=== PATIENT | female | born 1960 | race Caucasian/White ===

== ENCOUNTER → 2016-04-17 | Outpatient (CLI) | payer MEDICARE, MEDICAID ==
--- NOTE | 2016-04-17 15:41 | REP ---
PA and lateral chest: Comparison is 08/06/2009. There is interstitial coarsening versus artifact from radiographic under penetration. There are no focal infiltrates. No pleural effusions. Cardiac size is normal. The megha, mediastinum, and bony thorax are unremarkable. Impression: Interstitial coarsening versus artifact from under penetration. Otherwise, negative PA and lateral chest. Signed by Brijesh Licea MD 04/17/2016 03:33 P
== END ==
LOC: M ADAMS 14:38
PROVIDERS: ATTEND Physician Assistant
DX: J40 Bronchitis, not specified as acute or chronic (principal)
CPT/HCPCS: 71020; G0463

== ENCOUNTER → 2016-05-17 | Outpatient (REF) | payer MEDICARE, MEDICAID | LOC: M SFHCADAM 09:52 | PROVIDERS: ATTEND Physician Assistant | DX: E10.65 Type 1 diabetes mellitus with hyperglycemia (principal) | CPT/HCPCS: 83036; G0463 ==

== ENCOUNTER → 2016-09-14 | Outpatient (CLI) | payer MEDICARE, MEDICAID ==
--- NOTE | 2016-10-03 00:45 | ECWPNPC ---
PATIENT NAME: BETHANY ROLDAN : 1960 GENDER: FEMALE VISIT DATE: 09/14/2016 DISCHARGE DATE: 09/14/16 1226 VISIT LOCKED DATE TIME: PHYSICIAN: FLAKITA SMITH RESOURCE: FLAKITA SMITH REASON FOR APPOINTMENT 1. BACK PAIN HISTORY OF PRESENT ILLNESS HISTORY OF PRESENT ILLNESS: PAIN THE PATIENT DESCRIBES THE PAIN... FALL RISK SCREENING: SCREENING :NO FALLS IN THE PAST YEAR TODAY'S VISIT: NOTES: FIRST RETURN TO THE CLINIC SINCE 10/31. HAD BEEN SCHEDULED FOR A PROCEDURE BUT NOT COMPLETED SCHEDULED. REPORTS SHE IS HAVING INCREASED BACK PAIN AND HAVING TINGLING IN LEFT LEG. THIS IS NEW AND IS GETTING WORSE. SENSORY CHANGE STARTS AT SCIATIC REGION AND RADIATES DOWN TO FEET.. ABOUT 2 WEEKS AGO BEGAN HAVING SEVERE WEAKNESS AND COULDN'T WALK EVEN WITH WALKER. HAS NEW WEAKNESS IN LEFT LEG. HAS GROUP HOME RIGHT FOOT DROP,. NO LOSS OF BOWEL OR BLADDER CONTROL. HAS NOT ATTENDED RECENT PHYSICAL THERAPY BUT IS ATTEMPTING EXERCISE PROGRAM. RATES PAIN TODAY 6/10. DESCRIBES PAIN CONSTANT, SORE AND TINGLING. . CURRENT MEDICATIONS TAKING ASPIRIN 81 MG TABLET DELAYED RELEASE 1 TABLET ORALLY ONCE A DAY TAKING GARLIC 1000 MG TABLET 1 CAP(S) ORALLY DAILY TAKING CO Q 10 100 MG CAPSULE 1 CAPSULE WITH A MEAL ORALLY ONCE A DAY TAKING ONE TOUCH ULTRA BLUE STRIPS DIRECTED DX:E10.65 SIX TIMES DAILY TAKING VITAMIN D (CHOLECALCIFEROL) 1000 UNIT TABLET 2 TABLET ORALLY ONCE A DAY TAKING MAY HAVE - - DIRECTED PT MAY BENEFIT FROM AN AIR CONDITIONER. DX CODE:E10.65 DIRECTED TAKING TOUJEO SOLOSTAR 300 UNIT/ML SOLUTION PEN-INJECTOR 50 UNITS AM/70 UNIS PM SUBCUTANEOUS DIRECTED TAKING HUMALOG 100 UNIT/ML SOLUTION PER SLIDING SCALE SUBCUTANEOUS THREE TIMES A DAY GZV=078 TAKING TELMISARTAN 20 MG TABLET 1 TABLET ORALLY ONCE A DAY TAKING TELMISARTAN 40 MG TABLET 1 TABLET ORALLY ONCE A DAY TAKING AMLODIPINE BESYLATE 2.5 MG TABLET 1 TABLET ORALLY ONCE A DAY TAKING CHLORTHALIDONE 25 MG TABLET 1/2 TABLET IN THE MORNING ORALLY ONCE A DAY TAKING CRESTOR 20 MG TABLET 1 TABLET ORALLY ONCE A DAY MEDICATION LIST REVIEWED AND RECONCILED WITH THE PATIENT PAST MEDICAL HISTORY DIABETES TYPE 2 WITH PERIPHERAL NEUROPATHY - CKD3 HTN HYPERLIPIDEMIA DIFFUSE ARTHRITIS STRESS TEST - NORMAL VITAMIN D DEFICIENCY LUMBAR DDD WITH RADICULAOPATHY, LUMBAR STENOSIS AND MYOFASCIAL PAIN SYNDROME - HAS UNDERGONE LUMBAR EPIDURAL IN PAST WITH DR. KRISTAL WILSON. EVALUATED BY ORTHO (DR. MCKEON) - NON-SURGICAL - NOW FOLLOWING WITH DR. CHRISTIANSON AT [facility] STRESS [facility] - NORMAL 2012 ECHO [facility] CARDIOLOGY - NORMAL 2012 DIABETIC PERIPHERAL NEUROPATY CONFIRMED BY [facility] 05/2012 ABNORMAL MAMMOGRAM WITH CLUSTER OF CALCIFICATIONS LEFT BREAST - NO BIOPSY DONE - PATIENT REFUSES FURTHER MAMMOGRAMS/BIOPSIES 10/26/15 ABNORMAL SLIM PER LABWORK IN PAST - NO RHEUM EVALUATION ALLERGIES METFORMIN HCL: DIARRHEA: SIDE EFFECTS PENICILLIN (FOR ALLERGIES USE ONLY): ANAPHYLAXIS: ALLERGY BEES: ANAPHYLAXIS: ALLERGY SOCIAL HISTORY GENERAL: TOBACCO USE ARE YOU A:FORMER SMOKER SMOKED 40 YEARS - SMOKED 1/2 PACK EVERY COUPLE OF WEEKS. HOW LONG HAS IT BEEN SINCE YOU LAST SMOKED?1-3 MONTHS ADDITIONAL FINDINGS: TOBACCO [id number] SMOKER BMI CARE GOAL FOLLOW-UP ABOVE NORMAL BMI FOLLOW-UPDIETARY MANAGEMENT EDUCATION, GUIDANCE, AND COUNSELING ALCOHOL SCREENING DID YOU HAVE A DRINK CONTAINING ALCOHOL IN THE PAST YEAR?NO POINTS0 INTERPRETATIONNEGATIVE RECREATIONAL DRUG USE DRUG USE?NO CAFFEINE CAFFEINE USE?YES SEXUAL HX HAD SEX IN THE LAST 12 MONTHS (VAGINAL, ORAL, OR ANAL)?NO HAVE YOU EVER HAD AN STD?NO LMP:2012 OCCUPATION: RETIRED. DIET: NO ADDED SALT. MARITAL STATUS: . OTHERS AT HOME: NONE. PETS: NONE. TENRIISM [id number] NONE LANGUAGE SLOVENIAN. LEARNING BARRIERS / SPECIAL NEEDS CHANGE FROM LAST VISIT?NO BARRIERS TO LEARNING?NO HEARING IMPAIRED?NO VISION IMPAIRED?YES :CORRECTIVE LENSES COGNITIVELY IMPAIRED?NO READINESS TO LEARN?YES LEARNING PREFERENCES?NO LEARNING CAPABILITIES PRESENT?YES EMOTIONAL BARRIERS?NO SPECIAL DEVICES?NO PSYCHOLOGICAL HX TREATMENT NO . PAIN CLINIC PFS, CLERGY, PUBLIC HEALTH REFERRALS PFS REFERRAL NEEDED?NO CLERGY REFERRAL NEEDED?NO PUBLIC HEALTH REFERRAL NEEDED?NO HAS THE PATIENT BEEN EDUCATED REGARDING HIS/HER PLAN OF CARE?YES HAS THE PATIENT BEEN EDUCATED REGARDING PAIN, THE RISK FOR PAIN, THE IMPORTANCE OF EFFECTIVE PAIN MANAGEMENT, AND THE PAIN ASSESSMENT PROCESS?YES PATIENT: ____. ADVANCE DIRECTIVES HEALTH CARE PROXY? NO, POWER OF PRIMARY HEALTH ORGANISATION MANAGER? NO. REVIEW OF SYSTEMS REVIEWED BY: PROVIDER: FLAKITA MARROQUIN . CONSTITUTIONAL: ANY CHANGE IN YOUR MEDICAL CONDITION? YES, INCREASED PAIN AND NUMBNESS LEFT LEG . CHILLS NO . FEVER NO . INFECTION: DO YOU HAVE NEW INFECTIONS? NO . DO YOU HAVE HISTORY OF MRSA? NO . MUSCULOSKELETAL: ANY NEW PATTERNS OF PAIN OR NUMBNESS? NO . GASTROENTEROLOGY: ANY NEW CHANGE IN BOWEL CONTROL? NO . GENITOURINARY: ANY NEW CHANGE IN BLADDER CONTROL? NO . IS THERE A CHANCE YOU COULD BE ? NO . HEMATOLOGY/LYMPH: DO YOU TAKE ANY BLOOD THINNERS? (FOR EXAMPLE- COUMADIN, PLAVIX, AGGRENOX, PLATEL, PRADAXA, OR XARELTO) NO . WHEN WAS YOUR LAST DOSE? DATE: TIME: . NEUROLOGY: HAVE YOU FALLEN IN THE PAST 6 MONTHS? YES . ANY NEW EXTREMITY NUMBNESS OR WEAKNESS? NO . CARDIOLOGY: DO YOU HAVE A PACEMAKER OR DEFIBRILLATOR? NO . RESPIRATORY: HAVE YOU BEEN SICK IN THE PAST WEEK? NO . FEVER NO . FLU LIKE SYMPTOMS? NO . COUGH NO . INTEGUMENTARY: DO YOU HAVE ANY RASHES OR OPEN SORES? NO . ALLERGIC/IMMUNO: ARE YOU ALLERGIC TO SHELLFISH OR IV DYE? NO . ANY NEW ALLERGIES? NO . PSYCHIATRIC: DO YOU HAVE THOUGHTS OF HURTING YOURSELF OR SOMEONE ELSE? NO . ARE YOU ABUSED, NEGLECTED, OR IN AN UNSAFE ENVIRONMENT? NO . ENDOCRINOLOGY: ARE YOU DIABETIC? YES - NEW MEDS - BS IMPROVING. . OTHER: DO YOU NEED ANY PRESCRIPTIONS? NO . IF YES, PLEASE LIST: ____ . ANY NEW PROBLEMS WITH YOUR MEDICATIONS? NO . WHEN DID YOU LAST EAT? ____ . WHEN DID YOU LAST DRINK? ____ . WHAT DID YOU LAST DRINK? ____ . NAME OF PERSON DRIVING YOU HOME? ____ . DO YOU HAVE ANY OTHER QUESTIONS OR CONCERNS NO . VITAL SIGNS WT 255 LBS, HT 64.5", BMI 43.09 INDEX, BP 137/78 MM HG, HR 86 /MIN, RR 20 /MIN, TEMP 98.7 F, OXYGEN SAT % 96, NA INITIALS AW 1132, REVIEWED BY: CS. EXAMINATION GENERAL EXAMINATION: PSYCHALERT , ORIENTED X 3 , APPROPRIATE MOOD AND AFFECT , TALKATIVE. LUNGS:CLEAR TO AUSCULTATION BILATERALLY. HEART:HEART RATE REGULAR. ABDOMEN:SOFT, NON-TENDER/NON-DISTENDED, BOWEL SOUNDS PRESENT. MUSCULOSKELETAL:EXQUISITE TENDERNESS OVER LUMBAR SPINOUS PROCESSES P AND L>R LUMBOSACRAL AXIS> POINT TENDERNESS OVER BILATERAL SACRALILIAC JOINTS. POSITIVE HUAN SIGN ON LEFT. . (OLD) R FOOT DROP - WEAKNESS IN R>L EFT LOWER EXTREMITY. SLOW TO RISE TO STANDING POSITION. POSTURE UPRIGHT. GAIT ANTALGIC.. NEUROLOGIC EXAM: DECREASED SENSATION BILATER LOWER EXTREMITIESE TO KNEES TO LIGHT TOUCH. DTR'S 2+ R LOWER EXTREMITY, 3+ ON LEFT. DIAGNOSTIC TESTS REVIEWEDMRI OF LUMBAR SPINE COMPLETED 10/26/15 REVIEWED WITH PATIENT. ASSESSMENTS LUMBAR DISC DISPLACEMENT WITHOUT MYELOPATHY - M51.26 (PRIMARY) LUMBAR FACET ARTHROPATHY - M12.88 SACROILIAC JOINT DISEASE - M53.3 TREATMENT LUMBAR DISC DISPLACEMENT WITHOUT MYELOPATHY NOTES: INTRALAMINR LUMBAR EPIDURALDO BLOOD SUGARS AM . NO BLOOD SUGAR MEDS AM OF PROCEDURE. CLINICAL NOTES: FALLS CARE PLAN: 1. RECOMMEND REMOVING ALL THROW RUGS. 2. RECOMMEND NIGHT LIGHTS 3. RECOMMEND WEARING RUBBER SOLED SHOES AND TO NOT GO BAREFOOT. 4.. ADVISED TO CHANGE POSITION SLOWLY FROM SUPINE TO STANDING TO AVOID DIZZINESS. 5. ADVISED TO USE ASSISTIVE DEVICE SUCH CANE OR WALKER . USE CAUTION WITH WEAK AND NUMB LEFT LOWER EXTREMITY, #128 - SCREENING BMI AND F/U PLAN IN : BMI ABOVE NORMAL TODAY. DISCUSSED WITH PATIENT NUTRITIONAL FOOD CHOICES TO ASSIST WITH WEIGHT LOSS. RECCOMMENDED REDUCING SALT, SUGAR, SODA INTAKE. RECOMMEND INCREASE ACTIVITY TO INCLUDE WALKING ON A REGULAR BASIS. PREVENTIVE MEDICINE PAIN CLINIC TEACHING: PROCEDURE TEACHING PRE-PROCEDURE TEACHING DONE. PATIENT VERBALIZES SHE HAS HAD LUMBAR EPIDURALS IN THE PAST AND DOES NOT NEED ANY INFORMATION ABOUT THE PROCEDURE. QUESTIONS ANSWERED AND VERBALIZED UNDERSTANDING.. PROCEDURE CODES FA211 ESTABILISHED PATIENT [facility] FACILITY CHARGE G8783 BP SCR PRFRM RCMDD DEFIND SCR INTVL G8730 PAIN ASSESS POS TOOL F/U PLAN DOC 3016F PT SCRND UNHLTHY OH USE 1124F ACP DISCUSS-NO DSCNMKR DOCD 1036F TOBACCO NON-USER 0518F FALL PLAN OF CARE DOCD G8427 DOC MEDS VERIFIED W/PT OR RE G8417 BMI >=30 CALCUATE W/FOLLOWUP 3288F FALL RISK ASSESSMENT DOCD DISPOSITION & COMMUNICATION FOLLOW UP AFTER INJECTION (REASON: CHECK AUTH INTRALAMINR LUMBAR EPIDURAL) ELECTRONICALLY SIGNED BY [employer] HELTON ON 10/02/2016 AT 05:55 PM EDT DISCLAIMER : THIS IS A VISIT SUMMARY EXTRACTED FROM THE [employer] CHART. IT IS NOT A COPY OF THE [employer] PROGRESS NOTE. KAYLYNN
== END ==
LOC: M PAIN 11:20
PROVIDERS: ATTEND Nurse Practitioner Family
DX: M51.26 Other intervertebral disc displacement, lumbar region (principal); M12.88 Other specific arthropathies, not elsewhere classified, other specified site; M53.3 Sacrococcygeal disorders, not elsewhere classified; Z79.82 Long term (current) use of aspirin; Z79.4 Long term (current) use of insulin; Z79.899 Other long term (current) drug therapy; Z87.891 Personal history of nicotine dependence; Z88.0 Allergy status to penicillin; Z91.030 Bee allergy status; Z88.8 Allergy status to other drugs, medicaments and biological substances; E11.22 Type 2 diabetes mellitus with diabetic chronic kidney disease; I12.9 Hypertensive chronic kidney disease with stage 1 through stage 4 chronic kidney disease, or unspecified chronic kidney disease; N18.3 Chronic kidney disease, stage 3 (moderate); E55.9 Vitamin D deficiency, unspecified

== ENCOUNTER → 2016-09-28 | Outpatient (CLI) | payer MEDICARE, MEDICAID ==
[~2016-09-28] MED LIST: ISOVUE-M 300 61% 15ML VIAL (Q9967) As Ordered ONE; LIDOCAINE 1% SDV INJ 30 ML VIAL As Ordered ONE; methylPREDNISolone SUSP 40 MG/ML (DEPO-medrol) VIAL (J1030) As Ordered ONE
--- NOTE | 2016-09-28 12:29 | REP ---
Partial lumbar spine series: Three views . History: Injection procedure for pain. Nine seconds of fluoroscopy time is reported. Findings: A sequence of three fluoroscopically obtained last image hold procedural spot radiographs of the lumbar spine document needle position and contrast injection associated with injection procedure. Signed by Rc Almaguer MD 09/28/2016 12:20 P
--- NOTE | 2016-10-10 00:12 | ECWPNPC ---
PATIENT NAME: BETHANY ROLDAN : 1960 GENDER: FEMALE VISIT DATE: 09/28/2016 DISCHARGE DATE: 09/28/16 1235 VISIT LOCKED DATE TIME: PHYSICIAN: MARYANN CHRISTIANSON RESOURCE: MARYANN CHRISTIANSON REASON FOR APPOINTMENT 1. INTRALAMINR LE HISTORY OF PRESENT ILLNESS HISTORY OF PRESENT ILLNESS: PAIN THE PATIENT DESCRIBES THE PAIN... FALL RISK SCREENING: SCREENING :NO FALLS IN THE PAST YEAR CURRENT MEDICATIONS TAKING ASPIRIN 81 MG TABLET DELAYED RELEASE 1 TABLET ORALLY ONCE A DAY, NOTES: 09/27/16@1700 TAKING CO Q 10 100 MG CAPSULE 1 CAPSULE WITH A MEAL ORALLY ONCE A DAY, NOTES: 0900 TAKING ONE TOUCH ULTRA BLUE STRIPS DIRECTED DX:E10.65 SIX TIMES DAILY TAKING VITAMIN D (CHOLECALCIFEROL) 1000 UNIT TABLET 2 TABLET ORALLY ONCE A DAY, NOTES: 09/27/16@1700 TAKING MAY HAVE - - DIRECTED PT MAY BENEFIT FROM AN AIR CONDITIONER. DX CODE:E10.65 DIRECTED TAKING TOUJEO SOLOSTAR 300 UNIT/ML SOLUTION PEN-INJECTOR 50 UNITS AM/70 UNIS PM SUBCUTANEOUS DIRECTED, NOTES: 09/27/16@2100 TAKING HUMALOG 100 UNIT/ML SOLUTION PER SLIDING SCALE SUBCUTANEOUS THREE TIMES A DAY BDF=229, NOTES: 09/27/16@1830 TAKING AMLODIPINE BESYLATE 2.5 MG TABLET 1 TABLET ORALLY ONCE A DAY, NOTES: 0900 TAKING CHLORTHALIDONE 25 MG TABLET 1/2 TABLET IN THE MORNING ORALLY ONCE A DAY, NOTES: 0900 TAKING CRESTOR 20 MG TABLET 1 TABLET ORALLY ONCE A DAY, NOTES: 0900 TAKING TELMISARTAN 40 MG TABLET TAKE ONE TABLET BY MOUTH EVERY DAY , NOTES: 0900 TAKING TELMISARTAN 20 MG TABLET TAKE ONE TABLET BY MOUTH EVERY DAY , NOTES: 0900 NOT-TAKING GARLIC 1000 MG TABLET 1 CAP(S) ORALLY DAILY MEDICATION LIST REVIEWED AND RECONCILED WITH THE PATIENT PAST MEDICAL HISTORY DIABETES TYPE 2 WITH PERIPHERAL NEUROPATHY - CKD3 HTN HYPERLIPIDEMIA DIFFUSE ARTHRITIS STRESS TEST - NORMAL VITAMIN D DEFICIENCY LUMBAR DDD WITH RADICULAOPATHY, LUMBAR STENOSIS AND MYOFASCIAL PAIN SYNDROME - HAS UNDERGONE LUMBAR EPIDURAL IN PAST WITH DR. GIRALDO [facility]. EVALUATED BY ORTHO (DR. MCKEON) - NON-SURGICAL - NOW FOLLOWING WITH DR. CHRISTIANSON AT [facility] PAIN [facility] STRESS [place] [facility] [place] CARDILOG[facility] - NORMAL 2013 ECHO [facility] CARDIOLOGY - NORMAL 2013 DIABETIC PERIPHERAL NEUROPATY CONFIRMED BY [facility] 05/2012 ABNORMAL MAMMOGRAM WITH CLUSTER OF CALCIFICATIONS LEFT BREAST - NO BIOPSY DONE - PATIENT REFUSES FURTHER MAMMOGRAMS/BIOPSIES 10/26/15 ABNORMAL SLIM PER LABWORK IN PAST - NO RHEUM EVALUATION ALLERGIES METFORMIN HCL: DIARRHEA: SIDE EFFECTS PENICILLIN (FOR ALLERGIES USE ONLY): ANAPHYLAXIS: ALLERGY BEES: ANAPHYLAXIS: ALLERGY REVIEW OF SYSTEMS REVIEWED BY: PROVIDER: . CONSTITUTIONAL: ANY CHANGE IN YOUR MEDICAL CONDITION? NO . CHILLS NO . FEVER NO . INFECTION: DO YOU HAVE NEW INFECTIONS? NO . DO YOU HAVE HISTORY OF MRSA? NO . MUSCULOSKELETAL: ANY NEW PATTERNS OF PAIN OR NUMBNESS? NO . GASTROENTEROLOGY: ANY NEW CHANGE IN BOWEL CONTROL? NO . GENITOURINARY: ANY NEW CHANGE IN BLADDER CONTROL? NO . IS THERE A CHANCE YOU COULD BE ? NO . HEMATOLOGY/LYMPH: DO YOU TAKE ANY BLOOD THINNERS? (FOR EXAMPLE- COUMADIN, PLAVIX, AGGRENOX, PLATEL, PRADAXA, OR XARELTO) NO . WHEN WAS YOUR LAST DOSE? DATE: TIME: . NEUROLOGY: HAVE YOU FALLEN IN THE PAST 6 MONTHS? YES . ANY NEW EXTREMITY NUMBNESS OR WEAKNESS? NO . CARDIOLOGY: DO YOU HAVE A PACEMAKER OR DEFIBRILLATOR? NO . RESPIRATORY: HAVE YOU BEEN SICK IN THE PAST WEEK? NO . FEVER NO . FLU LIKE SYMPTOMS? NO . COUGH NO . INTEGUMENTARY: DO YOU HAVE ANY RASHES OR OPEN SORES? NO . ALLERGIC/IMMUNO: ARE YOU ALLERGIC TO SHELLFISH OR IV DYE? NO . ANY NEW ALLERGIES? NO . PSYCHIATRIC: DO YOU HAVE THOUGHTS OF HURTING YOURSELF OR SOMEONE ELSE? NO . ARE YOU ABUSED, NEGLECTED, OR IN AN UNSAFE ENVIRONMENT? NO . ENDOCRINOLOGY: ARE YOU DIABETIC? YES . OTHER: DO YOU NEED ANY PRESCRIPTIONS? NO . IF YES, PLEASE LIST: ____ . ANY NEW PROBLEMS WITH YOUR MEDICATIONS? NO . WHEN DID YOU LAST EAT? ____0400 . WHEN DID YOU LAST DRINK? ____0900 . WHAT DID YOU LAST DRINK? ____WATER . NAME OF PERSON DRIVING YOU HOME? ____RICK, BROTHER . DO YOU HAVE ANY OTHER QUESTIONS OR CONCERNS NO . VITAL SIGNS WT 255.0 LBS, HT 64.5", BMI 43.09 INDEX, BP 174/74 MM HG, REPEAT BP 154/82 MANUAL, HR 83 /MIN, RR 18 /MIN, TEMP 97.6 F, OXYGEN SAT % 96%, BLOOD GLUCOSE LEVEL PT STATED 293, NA INITIALS TL 1119. ASSESSMENTS INTERVERTEBRAL DISC DISORDERS WITH RADICULOPATHY, LUMBAR REGION - M51.16 (PRIMARY) PROCEDURES PRE PROCEDURE DIAGNOSIS LUMBAR DISC DISORDER WITH RADICULOPATHY POST PROCEDURE DIAGNOSIS LUMBAR DISC DISORDER WITH RADICULOPATHY PROCEDURE LUMBAR EPIDURAL STEROID INJECTION UNDER FLUOROSCOPIC GUIDANCE SURGEON DR. MARYANN CHRISTIANSON BODY LINER NONE ANESTHESIA LOCAL PRE PROCEDURE NOTE THE PATIENT HAS A HISTORY OF CHRONIC LOW BACK PAIN. I EVALUATE THE PATIENT AND REVIEWED THE CHART. I WENT OVER THE RISKS, ALTERNATIVES, AND BENEFITS ASSOCIATED WITH THIS PROCEDURE. THE PATIENT WOULD LIKE TO PROCEED AND GIVE CONSENT TO PERFORMED THE PROCEDURE. THE PATIENT DENIES UNEXPLAINABLE WEIGHT LOSS, FEVER, CHILLS, OR NEW CHANGES IN URINARY OR BOWEL CONTROL. DESCRIPTION OF PROCEDURE THE PATIENT WAS BROUGHT TO THE PROCEDURE ROOM AND PLACED IN THE PRONE POSITION. THE LUMBOSACRAL AREA WAS CLEANED WITH BETADINE SOLUTION AND DRAPED ASEPTICALLY. THE PROCEDURE WAS DONE UNDER STERILE CONDITIONS. I CHECKED LATERALITY AND THE LEVEL WHERE THE PROCEDURE WAS GOING TO BE PERFORMED WITH THE PATIENT AND THE SUPPORTING STAFF AT THE MOMENT OF THE TIME OUT IN THE PROCEDURE ROOM. UNDER FLUOROSCOPIC GUIDANCE, THE TARGET POINT WAS SELECTED AT THE INTERLAMINAR LEVEL OF L4-L5. LIDOCAINE WAS USED TO NUMB THE SKIN AND THE SUBCUTANEOUS TISSUE BELOW IT. EPIDURAL TUOHY NEEDLE, 17-GAUGE, WAS ADVANCED UNDER FLUOROSCOPIC GUIDANCE AND FOLLOWING PATIENT FEEDBACK UNTIL THE EPIDURAL SPACE WAS REACHED, 7 CM DEEP INTO THE SKIN BY THE LOSS OF RESISTANCE TECHNIQUE. ISOVUE M DYE 30%, 0.25 ML, WAS INJECTED SHOWING ADEQUATE SPREAD OF THE DYE. THEN, A SOLUTION OF 3 ML OF NORMAL SALINE WITH DEPO-MEDROL 60 MG WAS INJECTED SLOWLY FOLLOWING PATIENT FEEDBACK. THERE WAS NO EVIDENCE OF BLOOD, PARESTHESIA OR CEREBROSPINAL FLUID DURING THE PROCEDURE. THE PATIENT WAS SENT TO THE RECOVERY ROOM. THE PATIENT WAS MOVING THE EXTREMITIES AND DOING WELL. THERE WAS NO COMPLICATION DURING THE PROCEDURE. FLUOROSCOPY TIME WAS 9 SECONDS. POST PROCEDURE NOTE THE PATIENT WILL BE SEEN IN A FOLLOW UP IN THE NEXT FEW WEEKS. INSTRUCTIONS WERE GIVEN, QUESTIONS WERE ANSWERED, AND THE PATIENT EXPRESSED UNDERSTANDING AND AGREES WITH THE PLAN. I, CORNEL MCDANIEL, DOCUMENTED THE ABOVE INFORMATION ACTING A SCRIBE FOR DR. CHRISTIANSON. I, DR. CHRISTIANSON, HAVE REVIEWED THE ABOVE DOCUMENT, SCRIBED BY CORNEL MCDANIEL, AND I VERIFY THAT IT IS ACCURATE DIAGNOSTIC IMAGING [facility] FLUORO GUIDE SPINE INJECTION (PAIN)[id number] PROCEDURE CODES 43609 LUMBAR/SACRAL W/ IMAGING 6045F RADXPS IN END [id number] PXD DISPOSITION & COMMUNICATION FOLLOW UP 3 WEEKS ELECTRONICALLY SIGNED BY MARYANN CHRISTIANSON MD ON 10/09/2016 AT 08:58 PM EDT DISCLAIMER : THIS IS A VISIT SUMMARY EXTRACTED FROM THE [employer] CHART. IT IS NOT A COPY OF THE [employer] PROGRESS NOTE. MTDD
--- NOTE | 2016-10-10 00:12 | ECWPNPC ---
PATIENT NAME: BETHANY ROLDAN : 1960 GENDER: FEMALE VISIT DATE: 09/28/2016 DISCHARGE DATE: 09/28/16 1235 VISIT LOCKED DATE TIME: PHYSICIAN: MARYANN CHRISTIANSON RESOURCE: MARYANN CHRISTIANSON REASON FOR APPOINTMENT 1. INTRALAMINR LE HISTORY OF PRESENT ILLNESS HISTORY OF PRESENT ILLNESS: PAIN THE PATIENT DESCRIBES THE PAIN... FALL RISK SCREENING: SCREENING :NO FALLS IN THE PAST YEAR CURRENT MEDICATIONS TAKING ASPIRIN 81 MG TABLET DELAYED RELEASE 1 TABLET ORALLY ONCE A DAY, NOTES: 09/27/16@1700 TAKING CO Q 10 100 MG CAPSULE 1 CAPSULE WITH A MEAL ORALLY ONCE A DAY, NOTES: 0900 TAKING ONE TOUCH ULTRA BLUE STRIPS DIRECTED DX:E10.65 SIX TIMES DAILY TAKING VITAMIN D (CHOLECALCIFEROL) 1000 UNIT TABLET 2 TABLET ORALLY ONCE A DAY, NOTES: 09/27/16@1700 TAKING MAY HAVE - - DIRECTED PT MAY BENEFIT FROM AN AIR CONDITIONER. DX CODE:E10.65 DIRECTED TAKING TOUJEO SOLOSTAR 300 UNIT/ML SOLUTION PEN-INJECTOR 50 UNITS AM/70 UNIS PM SUBCUTANEOUS DIRECTED, NOTES: 09/27/16@2100 TAKING HUMALOG 100 UNIT/ML SOLUTION PER SLIDING SCALE SUBCUTANEOUS THREE TIMES A DAY FUX=047, NOTES: 09/27/16@1830 TAKING AMLODIPINE BESYLATE 2.5 MG TABLET 1 TABLET ORALLY ONCE A DAY, NOTES: 0900 TAKING CHLORTHALIDONE 25 MG TABLET 1/2 TABLET IN THE MORNING ORALLY ONCE A DAY, NOTES: 0900 TAKING CRESTOR 20 MG TABLET 1 TABLET ORALLY ONCE A DAY, NOTES: 0900 TAKING TELMISARTAN 40 MG TABLET TAKE ONE TABLET BY MOUTH EVERY DAY , NOTES: 0900 TAKING TELMISARTAN 20 MG TABLET TAKE ONE TABLET BY MOUTH EVERY DAY , NOTES: 0900 NOT-TAKING GARLIC 1000 MG TABLET 1 CAP(S) ORALLY DAILY MEDICATION LIST REVIEWED AND RECONCILED WITH THE PATIENT PAST MEDICAL HISTORY DIABETES TYPE 2 WITH PERIPHERAL NEUROPATHY - CKD3 HTN HYPERLIPIDEMIA DIFFUSE ARTHRITIS STRESS TEST - NORMAL VITAMIN D DEFICIENCY LUMBAR DDD WITH RADICULAOPATHY, LUMBAR STENOSIS AND MYOFASCIAL PAIN SYNDROME - HAS UNDERGONE LUMBAR EPIDURAL IN PAST WITH DR. GIRALDO [facility]. EVALUATED BY ORTHO (DR. MCKEON) - NON-SURGICAL - NOW FOLLOWING WITH DR. CHRISTIANSON AT [facility] PAIN CL[facility]IC STRESS [place] [facility] [place] CARDILOG[facility] - NORMAL 2013 ECHO [facility] CARDIOLOGY - NORMAL 2013 DIABETIC PERIPHERAL NEUROPATY CONFIRMED BY [facility] 05/2012 ABNORMAL MAMMOGRAM WITH CLUSTER OF CALCIFICATIONS LEFT BREAST - NO BIOPSY DONE - PATIENT REFUSES FURTHER MAMMOGRAMS/BIOPSIES 10/26/15 ABNORMAL SLIM PER LABWORK IN PAST - NO RHEUM EVALUATION ALLERGIES METFORMIN HCL: DIARRHEA: SIDE EFFECTS PENICILLIN (FOR ALLERGIES USE ONLY): ANAPHYLAXIS: ALLERGY BEES: ANAPHYLAXIS: ALLERGY REVIEW OF SYSTEMS REVIEWED BY: PROVIDER: . CONSTITUTIONAL: ANY CHANGE IN YOUR MEDICAL CONDITION? NO . CHILLS NO . FEVER NO . INFECTION: DO YOU HAVE NEW INFECTIONS? NO . DO YOU HAVE HISTORY OF MRSA? NO . MUSCULOSKELETAL: ANY NEW PATTERNS OF PAIN OR NUMBNESS? NO . GASTROENTEROLOGY: ANY NEW CHANGE IN BOWEL CONTROL? NO . GENITOURINARY: ANY NEW CHANGE IN BLADDER CONTROL? NO . IS THERE A CHANCE YOU COULD BE ? NO . HEMATOLOGY/LYMPH: DO YOU TAKE ANY BLOOD THINNERS? (FOR EXAMPLE- COUMADIN, PLAVIX, AGGRENOX, PLATEL, PRADAXA, OR XARELTO) NO . WHEN WAS YOUR LAST DOSE? DATE: TIME: . NEUROLOGY: HAVE YOU FALLEN IN THE PAST 6 MONTHS? YES . ANY NEW EXTREMITY NUMBNESS OR WEAKNESS? NO . CARDIOLOGY: DO YOU HAVE A PACEMAKER OR DEFIBRILLATOR? NO . RESPIRATORY: HAVE YOU BEEN SICK IN THE PAST WEEK? NO . FEVER NO . FLU LIKE SYMPTOMS? NO . COUGH NO . INTEGUMENTARY: DO YOU HAVE ANY RASHES OR OPEN SORES? NO . ALLERGIC/IMMUNO: ARE YOU ALLERGIC TO SHELLFISH OR IV DYE? NO . ANY NEW ALLERGIES? NO . PSYCHIATRIC: DO YOU HAVE THOUGHTS OF HURTING YOURSELF OR SOMEONE ELSE? NO . ARE YOU ABUSED, NEGLECTED, OR IN AN UNSAFE ENVIRONMENT? NO . ENDOCRINOLOGY: ARE YOU DIABETIC? YES . OTHER: DO YOU NEED ANY PRESCRIPTIONS? NO . IF YES, PLEASE LIST: ____ . ANY NEW PROBLEMS WITH YOUR MEDICATIONS? NO . WHEN DID YOU LAST EAT? ____0400 . WHEN DID YOU LAST DRINK? ____0900 . WHAT DID YOU LAST DRINK? ____WATER . NAME OF PERSON DRIVING YOU HOME? ____RICK, BROTHER . DO YOU HAVE ANY OTHER QUESTIONS OR CONCERNS NO . VITAL SIGNS WT 255.0 LBS, HT 64.5", BMI 43.09 INDEX, BP 174/74 MM HG, REPEAT BP 154/82 MANUAL, HR 83 /MIN, RR 18 /MIN, TEMP 97.6 F, OXYGEN SAT % 96%, BLOOD GLUCOSE LEVEL PT STATED 293, NA INITIALS TL 1119. ASSESSMENTS INTERVERTEBRAL DISC DISORDERS WITH RADICULOPATHY, LUMBAR REGION - M51.16 (PRIMARY) PROCEDURES PRE PROCEDURE DIAGNOSIS LUMBAR DISC DISORDER WITH RADICULOPATHY POST PROCEDURE DIAGNOSIS LUMBAR DISC DISORDER WITH RADICULOPATHY PROCEDURE LUMBAR EPIDURAL STEROID INJECTION UNDER FLUOROSCOPIC GUIDANCE SURGEON DR. MARYANN CHRISTIANSON COPIER TECHNICIAN NONE ANESTHESIA LOCAL PRE PROCEDURE NOTE THE PATIENT HAS A HISTORY OF CHRONIC LOW BACK PAIN. I EVALUATE THE PATIENT AND REVIEWED THE CHART. I WENT OVER THE RISKS, ALTERNATIVES, AND BENEFITS ASSOCIATED WITH THIS PROCEDURE. THE PATIENT WOULD LIKE TO PROCEED AND GIVE CONSENT TO PERFORMED THE PROCEDURE. THE PATIENT DENIES UNEXPLAINABLE WEIGHT LOSS, FEVER, CHILLS, OR NEW CHANGES IN URINARY OR BOWEL CONTROL. DESCRIPTION OF PROCEDURE THE PATIENT WAS BROUGHT TO THE PROCEDURE ROOM AND PLACED IN THE PRONE POSITION. THE LUMBOSACRAL AREA WAS CLEANED WITH BETADINE SOLUTION AND DRAPED ASEPTICALLY. THE PROCEDURE WAS DONE UNDER STERILE CONDITIONS. I CHECKED LATERALITY AND THE LEVEL WHERE THE PROCEDURE WAS GOING TO BE PERFORMED WITH THE PATIENT AND THE SUPPORTING STAFF AT THE MOMENT OF THE TIME OUT IN THE PROCEDURE ROOM. UNDER FLUOROSCOPIC GUIDANCE, THE TARGET POINT WAS SELECTED AT THE INTERLAMINAR LEVEL OF L4-L5. LIDOCAINE WAS USED TO NUMB THE SKIN AND THE SUBCUTANEOUS TISSUE BELOW IT. EPIDURAL TUOHY NEEDLE, 17-GAUGE, WAS ADVANCED UNDER FLUOROSCOPIC GUIDANCE AND FOLLOWING PATIENT FEEDBACK UNTIL THE EPIDURAL SPACE WAS REACHED, 7 CM DEEP INTO THE SKIN BY THE LOSS OF RESISTANCE TECHNIQUE. ISOVUE M DYE 30%, 0.25 ML, WAS INJECTED SHOWING ADEQUATE SPREAD OF THE DYE. THEN, A SOLUTION OF 3 ML OF NORMAL SALINE WITH DEPO-MEDROL 60 MG WAS INJECTED SLOWLY FOLLOWING PATIENT FEEDBACK. THERE WAS NO EVIDENCE OF BLOOD, PARESTHESIA OR CEREBROSPINAL FLUID DURING THE PROCEDURE. THE PATIENT WAS SENT TO THE RECOVERY ROOM. THE PATIENT WAS MOVING THE EXTREMITIES AND DOING WELL. THERE WAS NO COMPLICATION DURING THE PROCEDURE. FLUOROSCOPY TIME WAS 9 SECONDS. POST PROCEDURE NOTE THE PATIENT WILL BE SEEN IN A FOLLOW UP IN THE NEXT FEW WEEKS. INSTRUCTIONS WERE GIVEN, QUESTIONS WERE ANSWERED, AND THE PATIENT EXPRESSED UNDERSTANDING AND AGREES WITH THE PLAN. I, CORNEL MCDANIEL, DOCUMENTED THE ABOVE INFORMATION ACTING A SCRIBE FOR DR. CHRISTIANSON. I, DR. CHRISTIANSON, HAVE REVIEWED THE ABOVE DOCUMENT, SCRIBED BY CORNEL MCDANIEL, AND I VERIFY THAT IT IS [facility]UR[facility] DIAGNOSTIC IMAGING [facility] FLUORO GUIDE SPINE INJECTION (PAIN)[id number] PROCEDURE CODES 06019 LUMBAR/SACRAL W/ IMAGING 6045F RADXPS IN END [id number] PXD DISPOSITION & COMMUNICATION FOLLOW UP 3 WEEKS ELECTRONICALLY SIGNED BY MARYANN CHRISTIANSON MD ON 10/09/2016 AT 08:58 PM EDT DISCLAIMER : THIS IS A VISIT SUMMARY EXTRACTED FROM THE [employer] CHART. IT IS NOT A COPY OF THE [employer] PROGRESS NOTE. MTDD
== END ==
LOC: M PAIN 11:00
PROVIDERS: ATTEND Anesthesiology
DX: G89.29 Other chronic pain (principal); M54.5 Low back pain; M51.16 Intervertebral disc disorders with radiculopathy, lumbar region; Z79.4 Long term (current) use of insulin; Z79.899 Other long term (current) drug therapy; Z79.82 Long term (current) use of aspirin; Z88.8 Allergy status to other drugs, medicaments and biological substances; Z88.0 Allergy status to penicillin; Z91.030 Bee allergy status; I10 Essential (primary) hypertension; E11.22 Type 2 diabetes mellitus with diabetic chronic kidney disease
CPT/HCPCS: 62323; J1030; Q9967

== ENCOUNTER → 2016-10-19 | Outpatient (CLI) | payer MEDICARE, MEDICAID ==
--- NOTE | 2016-11-09 01:40 | ECWPNPC ---
PATIENT NAME: BETHANY ROLDAN : 1960 GENDER: FEMALE VISIT DATE: 10/19/2016 DISCHARGE DATE: 10/19/16 1027 VISIT LOCKED DATE TIME: PHYSICIAN: FLAKITA SMITH RESOURCE: FLAKITA SMITH REASON FOR APPOINTMENT 1. POST LESI HISTORY OF PRESENT ILLNESS HISTORY OF PRESENT ILLNESS: PAIN THE PATIENT DESCRIBES THE PAIN... FALL RISK SCREENING: SCREENING :NO FALLS IN THE PAST YEAR TODAY'S VISIT: NOTES: S/P LESB COMPLETED ON 09/28/16. PAIN LEVEL WAS 5/10 PRIOR WITH RADIATION OF PAIN TO LEVEL OF FOOT. POST INJECTION WAS NEAR 0/10 AND OVER DID, HAD EPSIODE OF "LEGS NOT WORKING" THIS LASTED FOR 10 MINUTES AND SHE DID CONTACT THE CLINIC. DR Jimenez RECOMMENDED MRI - SX CLEARED. NOW HAS NO PAIN INTO RIGHT LEG, AND IS ABLE TO WALK WITHOUT HER WALKER. STILL HAS SOME DISCOMFORT IN BACK. SLEEP IMPROVED. . CURRENT MEDICATIONS TAKING ASPIRIN 81 MG TABLET DELAYED RELEASE 1 TABLET ORALLY ONCE A DAY TAKING CO Q 10 100 MG CAPSULE 1 CAPSULE WITH A MEAL ORALLY ONCE A DAY TAKING ONE TOUCH ULTRA BLUE STRIPS DIRECTED DX:E10.65 SIX TIMES DAILY TAKING VITAMIN D (CHOLECALCIFEROL) 1000 UNIT TABLET 2 TABLET ORALLY ONCE A DAY TAKING MAY HAVE - - DIRECTED PT MAY BENEFIT FROM AN AIR CONDITIONER. DX CODE:E10.65 DIRECTED TAKING HUMALOG 100 UNIT/ML SOLUTION PER SLIDING SCALE SUBCUTANEOUS THREE TIMES A DAY REM=824 TAKING AMLODIPINE BESYLATE 2.5 MG TABLET 1 TABLET ORALLY ONCE A DAY TAKING CHLORTHALIDONE 25 MG TABLET 1/2 TABLET IN THE MORNING ORALLY ONCE A DAY TAKING CRESTOR 20 MG TABLET 1 TABLET ORALLY ONCE A DAY TAKING TELMISARTAN 40 MG TABLET TAKE ONE TABLET BY MOUTH EVERY DAY TAKING TELMISARTAN 20 MG TABLET TAKE ONE TABLET BY MOUTH EVERY DAY TAKING TOUJEO SOLOSTAR 300 UNIT/ML SOLUTION PEN-INJECTOR 50 UNITS AM/70 UNIS PM SUBCUTANEOUS DIRECTED NOT-TAKING GARLIC 1000 MG TABLET 1 CAP(S) ORALLY DAILY MEDICATION LIST REVIEWED AND RECONCILED WITH THE PATIENT PAST MEDICAL HISTORY DIABETES TYPE 2 WITH PERIPHERAL NEUROPATHY - CKD3 HTN HYPERLIPIDEMIA DIFFUSE ARTHRITIS STRESS TEST - NORMAL VITAMIN D DEFICIENCY LUMBAR DDD WITH RADICULAOPATHY, LUMBAR STENOSIS AND MYOFASCIAL PAIN SYNDROME - HAS UNDERGONE LUMBAR EPIDURAL IN PAST WITH DR. KRISTAL WILSON. EVALUATED BY ORTHO (DR. MCKEON) - NON-SURGICAL - NOW FOLLOWING WITH DR. CHRISTIANSON AT [facility] STRESS TEST [facility] CARDILOG[facility] - NORMAL 2012 ECHO [facility] CARDIOLOGY - NORMAL 2012 DIABETIC PERIPHERAL NEUROPATY CONFIRMED BY [facility] 05/2012 ABNORMAL MAMMOGRAM WITH CLUSTER OF CALCIFICATIONS LEFT BREAST - NO BIOPSY DONE - PATIENT REFUSES FURTHER MAMMOGRAMS/BIOPSIES 10/26/15 ABNORMAL SLIM PER LABWORK IN PAST - NO RHEUM EVALUATION ALLERGIES METFORMIN HCL: DIARRHEA: SIDE EFFECTS PENICILLIN (FOR ALLERGIES USE ONLY): ANAPHYLAXIS: ALLERGY BEES: ANAPHYLAXIS: ALLERGY SOCIAL HISTORY GENERAL: TOBACCO USE ARE YOU A:FORMER SMOKER SMOKED 40 YEARS - SMOKED 1/2 PACK EVERY COUPLE OF WEEKS. HOW LONG HAS IT BEEN SINCE YOU LAST SMOKED?1-3 MONTHS ADDITIONAL FINDINGS: TOBACCO [id number] SMOKER BMI CARE GOAL FOLLOW-UP ABOVE NORMAL BMI FOLLOW-UPDIETARY MANAGEMENT EDUCATION, GUIDANCE, AND COUNSELING ALCOHOL SCREENING DID YOU HAVE A DRINK CONTAINING ALCOHOL IN THE PAST YEAR?NO POINTS0 INTERPRETATIONNEGATIVE RECREATIONAL DRUG USE DRUG USE?NO CAFFEINE CAFFEINE USE?YES SEXUAL HX HAD SEX IN THE LAST 12 MONTHS (VAGINAL, ORAL, OR ANAL)?NO HAVE YOU EVER HAD AN STD?NO LMP:2012 OCCUPATION: RETIRED. DIET: NO ADDED SALT. MARITAL STATUS: . OTHERS AT HOME: NONE. PETS: NONE. TENRIISM [id number] NONE LANGUAGE CONGOLESE. LEARNING BARRIERS / SPECIAL NEEDS CHANGE FROM LAST VISIT?NO BARRIERS TO LEARNING?NO HEARING IMPAIRED?NO VISION IMPAIRED?YES :CORRECTIVE LENSES COGNITIVELY IMPAIRED?NO READINESS TO LEARN?YES LEARNING PREFERENCES?NO LEARNING CAPABILITIES PRESENT?YES EMOTIONAL BARRIERS?NO SPECIAL DEVICES?NO PSYCHOLOGICAL HX TREATMENT NO . PAIN CLINIC PFS, CLERGY, PUBLIC HEALTH REFERRALS PFS REFERRAL NEEDED?NO CLERGY REFERRAL NEEDED?NO PUBLIC HEALTH REFERRAL NEEDED?NO HAS THE PATIENT BEEN EDUCATED REGARDING HIS/HER PLAN OF CARE?YES HAS THE PATIENT BEEN EDUCATED REGARDING PAIN, THE RISK FOR PAIN, THE IMPORTANCE OF EFFECTIVE PAIN MANAGEMENT, AND THE PAIN ASSESSMENT PROCESS?YES PATIENT: ____. ADVANCE DIRECTIVES HEALTH CARE PROXY? NO, POWER OF CAR GROOMER? NO. REVIEW OF SYSTEMS REVIEWED BY: PROVIDER: FLAKITA MARROQUIN . CONSTITUTIONAL: ANY CHANGE IN YOUR MEDICAL CONDITION? NO . CHILLS NO . FEVER NO . INFECTION: DO YOU HAVE NEW INFECTIONS? NO . DO YOU HAVE HISTORY OF MRSA? NO . MUSCULOSKELETAL: ANY NEW PATTERNS OF PAIN OR NUMBNESS? NO . GASTROENTEROLOGY: ANY NEW CHANGE IN BOWEL CONTROL? NO . GENITOURINARY: ANY NEW CHANGE IN BLADDER CONTROL? NO . IS THERE A CHANCE YOU COULD BE ? NO . HEMATOLOGY/LYMPH: DO YOU TAKE ANY BLOOD THINNERS? (FOR EXAMPLE- COUMADIN, PLAVIX, AGGRENOX, PLATEL, PRADAXA, OR XARELTO) NO . WHEN WAS YOUR LAST DOSE? DATE: TIME: . NEUROLOGY: HAVE YOU FALLEN IN THE PAST 6 MONTHS? YES . ANY NEW EXTREMITY NUMBNESS OR WEAKNESS? NO . CARDIOLOGY: DO YOU HAVE A PACEMAKER OR DEFIBRILLATOR? NO . RESPIRATORY: HAVE YOU BEEN SICK IN THE PAST WEEK? NO . FEVER NO . FLU LIKE SYMPTOMS? NO . COUGH NO . INTEGUMENTARY: DO YOU HAVE ANY RASHES OR OPEN SORES? NO . ALLERGIC/IMMUNO: ARE YOU ALLERGIC TO SHELLFISH OR IV DYE? NO . ANY NEW ALLERGIES? NO . PSYCHIATRIC: DO YOU HAVE THOUGHTS OF HURTING YOURSELF OR SOMEONE ELSE? NO . ARE YOU ABUSED, NEGLECTED, OR IN AN UNSAFE ENVIRONMENT? NO . ENDOCRINOLOGY: ARE YOU DIABETIC? YES - IMPROVED . OTHER: DO YOU NEED ANY PRESCRIPTIONS? NO . IF YES, PLEASE LIST: ____ . ANY NEW PROBLEMS WITH YOUR MEDICATIONS? NO . WHEN DID YOU LAST EAT? ____ . WHEN DID YOU LAST DRINK? ____ . WHAT DID YOU LAST DRINK? ____ . NAME OF PERSON DRIVING YOU HOME? ____ . DO YOU HAVE ANY OTHER QUESTIONS OR CONCERNS NO . VITAL SIGNS WT 263 LBS, HT 64.5", BMI 44.44 INDEX, BP 145/78 MM HG, HR 77 /MIN, RR 18 /MIN, TEMP 97.4 F, OXYGEN SAT % 97%, NA INITIALS SC 10:09, REVIEWED BY: CS. EXAMINATION GENERAL EXAMINATION: PSYCHALERT , ORIENTED X 3 , APPROPRIATE MOOD AND AFFECT . LUNGS:CLEAR TO AUSCULTATION BILATERALLY. HEART:HEART RATE REGULAR. MUSCULOSKELETAL:TENDER WITH PALPATION OVER RIGHT > LEFT LUMBOSACRAL AXIS. RISES EASILY TO STANDING POSITIION . GAIT NONANTALGIC. ASSESSMENTS LUMBAR DISC DISPLACEMENT WITHOUT MYELOPATHY - M51.26 (PRIMARY) LUMBAR FACET ARTHROPATHY - M12.88 SACROILIAC JOINT DISEASE - M53.3 TREATMENT LUMBAR DISC DISPLACEMENT WITHOUT MYELOPATHY NOTES: CONTINUE WALKING STRETCHES AND MOVEMENTCALL IF INCREASED PAIN, MUSCLE WEAKNESS. PROCEDURE CODES FA211 ESTABILISHED PATIENT [facility] CHARGE G8730 PAIN ASSESS POS TOOL F/U PLAN DOC G8427 DOC MEDS VERIFIED W/PT OR RE DISPOSITION & COMMUNICATION FOLLOW UP 3MONTHS (REASON: BACK PAIN) ELECTRONICALLY SIGNED BY [employer] ON 11/08/2016 AT 10:00 AM EDT DISCLAIMER : THIS IS A VISIT SUMMARY EXTRACTED FROM THE [employer] CHART. IT IS NOT A COPY OF THE [employer] PROGRESS NOTE. KAYLYNN
== END ==
LOC: M PAIN 09:40
PROVIDERS: ATTEND Nurse Practitioner Family
DX: M51.26 Other intervertebral disc displacement, lumbar region (principal); M12.88 Other specific arthropathies, not elsewhere classified, other specified site; M53.3 Sacrococcygeal disorders, not elsewhere classified; I10 Essential (primary) hypertension; E55.9 Vitamin D deficiency, unspecified; E11.40 Type 2 diabetes mellitus with diabetic neuropathy, unspecified; Z79.84 Long term (current) use of oral hypoglycemic drugs; Z79.899 Other long term (current) drug therapy; Z87.891 Personal history of nicotine dependence; Z88.8 Allergy status to other drugs, medicaments and biological substances; Z88.0 Allergy status to penicillin; Z91.030 Bee allergy status

== ENCOUNTER → 2016-11-13 | Outpatient (REF) | payer MEDICARE, MEDICAID | LOC: M SFHCADAM 07:18 | PROVIDERS: ATTEND Physician Assistant | DX: E10.65 Type 1 diabetes mellitus with hyperglycemia (principal) ==

== ENCOUNTER → 2016-11-20 | Outpatient (REF) | payer MEDICARE, MEDICAID ==
[2016-11-20 19:01] LABS: ALBUMIN 4.2 GM/DL (3.2-5.2); ALBUMIN/GLOBULIN RATIO 1.27 (1.00-1.93); ALKALINE PHOSPHATASE 102 U/L (45-117); ALT/SGPT 28 U/L (12-78); AST/SGOT 12 U/L (15-37); BILIRUBIN,DIRECT < 0.1 MG/DL (0.0-0.2); BILIRUBIN,TOTAL 0.3 MG/DL (0.2-1.0); TOTAL PROTEIN 7.5 GM/DL (6.4-8.2)
[2016-11-20 19:03] LABS: BACTERIA, URINE MOD AMOUNT; HYALINE CAST, URINE NONE SEEN /lpf (0-1); MICROSCOPIC EXAM PERFORMED; SQUAMOUS EPITHELIAL CELL URINE MOD AMOUNT /hpf (SMALL AMT)
== END ==
LOC: M LAB REF 17:00
PROVIDERS: ATTEND Internal Medicine Nephrology
DX: R31.9 Hematuria, unspecified (principal); R10.811 Right upper quadrant abdominal tenderness

== ENCOUNTER → 2016-11-21 | Outpatient (CLI) | payer MEDICARE, MEDICAID ==
--- NOTE | 2016-11-21 08:16 | REP ---
Clinical: Abdominal pain and hematuria. Findings: Lung bases are clear. Visualized heart and pericardium normal. Liver, spleen, pancreas, gallbladder, bilateral adrenal glands are normal for noncontrast evaluation. The kidneys demonstrate mild, symmetric, chronic-appearing perinephric stranding without hydroureteronephrosis, intrarenal or obstructing ureteral calculi. The enteric system is without obstruction or acute inflammatory process and a normal terminal ileum and appendix are identified in the right lower quadrant. Pelvis demonstrates normal bladder and age-appropriate uterus/adnexa. No pelvic fluid or ascites. No free air. No adenopathy. Abdominal aorta without aneurysm. Surrounding musculoskeletal structures without focal osseous abnormality. Impression: 1. Normal noncontrast CT of the abdomen and pelvis. 2. Mild chronic-appearing perinephric stranding without hydroureternephrosis nephrolithiasis or obstructing calculus. Signed by Samuel Toscano MD 11/21/2016 08:08 A
== END ==
LOC: M RAD 07:51
PROVIDERS: ATTEND Internal Medicine Nephrology
DX: N18.3 Chronic kidney disease, stage 3 (moderate) (principal); R31.9 Hematuria, unspecified; R10.811 Right upper quadrant abdominal tenderness

== ENCOUNTER → 2016-11-23 | Outpatient (REF) | payer MEDICARE, MEDICAID ==
[2016-11-23 21:02] LABS: ALBUMIN 4.5 GM/DL (3.2-5.2); ALBUMIN/GLOBULIN RATIO 1.32 (1.00-1.93); BASO # 0.1 K/mm3 (0.0-0.2); BASO % 0.9 % (0.0-1.0); BILIRUBIN,TOTAL 0.5 MG/DL (0.2-1.0); CALCIUM LEVEL 10.3 MG/DL (8.5-10.1); CREATININE FOR GFR 1.64 MG/DL (0.55-1.02); EOS # 0.2 K/mm3 (0.0-0.50); EOS % 1.3 % (0.0-3.0); GLOMERULAR FILTRATION RATE 34.5 (>51); LARGE UNSTAINED CELL # 0.2 K/mm3 (0.0-0.4); LARGE UNSTAINED CELL % 1.1 % (0.0-4.0); LYMPH # 3.2 K/mm3 (1.5-4.5); LYMPH % 21.6 % (24.0-44.0); MEAN CORPUSCULAR HEMOGLOBIN 29.6 pg (27.0-33.0); MEAN CORPUSCULAR HGB CONC 32.7 g/dl (32.0-36.5); MEAN CORPUSCULAR VOLUME 90.6 fl (80.0-96.0); MONO % 6.7 % (0.0-5.0); NEUTROPHILS # 9.7 K/mm3 (1.8-7.7); NEUTROPHILS % 68.4 % (36.0-66.0); PLATELET COUNT, AUTOMATED 432 k/mm3 (150-450); POTASSIUM SERUM 4.4 MEQ/L (3.5-5.1); RED CELL DISTRIBUTION WIDTH 12.8 % (11.5-14.5); TOTAL PROTEIN 7.9 GM/DL (6.4-8.2); WHITE BLOOD COUNT 14.2 K/mm3 (4.0-10.0)
== END ==
LOC: M SFHCADAM 13:52
PROVIDERS: ATTEND Physician Assistant
DX: R10.11 Right upper quadrant pain (principal); R31.9 Hematuria, unspecified
CPT/HCPCS: 80053; 81001; 82150; 83690; 85025; 87086; G0463

== ENCOUNTER → 2016-11-26 | Outpatient (CLI) | payer MEDICARE, MEDICAID ==
--- NOTE | 2016-11-26 10:04 | REP ---
RIGHT UPPER QUADRANT SONOGRAPHY: HISTORY: Hypertension. Elevated white blood cell count, right upper quadrant abdominal pain. Comparison CT study November 21, 2016. ULTRASOUND FINDINGS: Scanning through right upper quadrant of the abdomen demonstrates a normal sized thin-walled gallbladder without evidence of stone or polyp. Common bile duct is normal measuring 0.2 cm in greatest diameter. No focal liver lesion is seen. There is evidence of mild fatty infiltration of the liver with areas of fat sparing near the gallbladder. No pancreatic abnormality is seen. No focal liver lesion is seen. The liver is borderline in size with the mid sagittal dimension of 18.8 cm. The right kidney measures 11.2 x 4.2 x 4.9 cm. IMPRESSION: Borderline enlarged liver. Mild fatty infiltration. Otherwise negative. Signed by Rc Almaguer MD 11/26/2016 03:50 P
== END ==
LOC: M SMT 08:04
PROVIDERS: ATTEND Internal Medicine Nephrology
DX: R10.811 Right upper quadrant abdominal tenderness (principal); D72.829 Elevated white blood cell count, unspecified; K76.0 Fatty (change of) liver, not elsewhere classified

== ENCOUNTER → 2017-01-09 | Outpatient (CLI) | payer MEDICARE, MEDICAID ==
--- NOTE | 2017-02-04 01:01 | ECWPNPC ---
PATIENT NAME: BETHANY ROLDAN : 1960 GENDER: FEMALE VISIT DATE: 01/09/2017 DISCHARGE DATE: 01/09/1738 VISIT LOCKED DATE TIME: PHYSICIAN: FLAKITA SMITH RESOURCE: FLAKITA SMITH REASON FOR APPOINTMENT 1. LOW BACK HISTORY OF PRESENT ILLNESS HISTORY OF PRESENT ILLNESS: PAIN THE PATIENT DESCRIBES THE PAIN... FALL RISK SCREENING: SCREENING :NO FALLS IN THE PAST YEAR TODAY'S VISIT: NOTES: RATES PAIN LEVEL TODAY 3/10. DESCRIBES PAIN CONSTANT AND ACHING. PAIN IS CENTERED AT LOW BACK AND LEFT KNEE. HAS BEEN HAVING TAILBONE AREA PAIN. WHEN WALKING WHOLE LEFT LEG IS GOING NUMB AGAIN. . CURRENT MEDICATIONS TAKING CO Q 10 100 MG CAPSULE 1 CAPSULE WITH A MEAL ORALLY ONCE A DAY TAKING ONE TOUCH ULTRA BLUE STRIPS DIRECTED DX:E10.65 SIX TIMES DAILY TAKING MAY HAVE - - DIRECTED PT MAY BENEFIT FROM AN AIR CONDITIONER. DX CODE:E10.65 DIRECTED TAKING CHLORTHALIDONE 25 MG TABLET 1/2 TABLET IN THE MORNING ORALLY ONCE A DAY TAKING CRESTOR 20 MG TABLET 1 TABLET ORALLY ONCE A DAY TAKING TELMISARTAN 40 MG TABLET TAKE ONE TABLET BY MOUTH EVERY DAY TAKING TELMISARTAN 20 MG TABLET TAKE ONE TABLET BY MOUTH EVERY DAY TAKING TOUJEO SOLOSTAR 300 UNIT/ML SOLUTION PEN-INJECTOR 60 UNITS AM/60 UNIS PM SUBCUTANEOUS DIRECTED TAKING AMLODIPINE BESYLATE 2.5 MG TABLET 1 TABLET ORALLY ONCE A DAY TAKING PEN NEEDLES 316" 31G X 5 MM MISCELLANEOUS DIRECTED DX: E10.65 FIVE TIMES/DAY TAKING HUMALOG 100 UNIT/ML SOLUTION PER SLIDING SCALE SUBCUTANEOUS THREE TIMES A DAY GGV=139 NOT-TAKING ASPIRIN 81 MG TABLET DELAYED RELEASE 1 TABLET ORALLY ONCE A DAY MEDICATION LIST REVIEWED AND RECONCILED WITH THE PATIENT PAST MEDICAL HISTORY DIABETES TYPE 2 WITH PERIPHERAL NEUROPATHY - CKD3 HTN HYPERLIPIDEMIA DIFFUSE ARTHRITIS STRESS TEST - NORMAL VITAMIN D DEFICIENCY LUMBAR DDD WITH RADICULAOPATHY, LUMBAR STENOSIS AND MYOFASCIAL PAIN SYNDROME - HAS UNDERGONE LUMBAR EPIDURAL IN PAST WITH DR. KRISTAL WILSON. EVALUATED BY ORTHO (DR. MCKEON) - NON-SURGICAL - NOW FOLLOWING WITH DR. CHRISTIANSON AT [facility] STRESS TEST [facility] CARDILOGY - NORMAL 2012 ECHO [facility] CARDIOLOGY - NORMAL 2012 DIABETIC PERIPHERAL NEUROPATY CONFIRMED BY [facility] 05/2012 ABNORMAL MAMMOGRAM WITH CLUSTER OF CALCIFICATIONS LEFT BREAST - NO BIOPSY DONE - PATIENT REFUSES FURTHER MAMMOGRAMS/BIOPSIES 10/26/15 ABNORMAL SLIM PER LABWORK IN PAST - NO RHEUM EVALUATION ALLERGIES METFORMIN HCL: DIARRHEA: SIDE EFFECTS PENICILLIN (FOR ALLERGIES USE ONLY): ANAPHYLAXIS: ALLERGY BEE VENOM: ANAPHYLAXIS: ALLERGY SURGICAL HISTORY SHOULDER SURGERY RIGHT 2003 LEFT BREAST CALCIFICATIONS REMOVED 2009 SOCIAL HISTORY GENERAL: TOBACCO USE ARE YOU A:FORMER SMOKER SMOKED 40 YEARS - SMOKED 1/2 PACK EVERY COUPLE OF WEEKS. HOW LONG HAS IT BEEN SINCE YOU LAST SMOKED?1-3 MONTHS ADDITIONAL FINDINGS: TOBACCO [id number] SMOKER BMI CARE GOAL FOLLOW-UP ABOVE NORMAL BMI FOLLOW-UPDIETARY MANAGEMENT EDUCATION, GUIDANCE, AND COUNSELING ALCOHOL SCREENING POINTS1 INTERPRETATIONNEGATIVE RECREATIONAL DRUG USE DRUG USE?NO CAFFEINE CAFFEINE USE?YES SEXUAL HX HAD SEX IN THE LAST 12 MONTHS (VAGINAL, ORAL, OR ANAL)?NO HAVE YOU EVER HAD AN STD?NO LMP:2012 OCCUPATION: DISABLED. DIET: NO ADDED SALT. EXERCISE: NO REGULAR EXERCISE. MARITAL STATUS: . OTHERS AT HOME: NONE. PETS: CAT. DRUZE [id number] SHINTO LANGUAGE JAPANESE. 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 PAIN CLINIC PFS, CLERGY, PUBLIC HEALTH REFERRALS PFS REFERRAL NEEDED?NO CLERGY REFERRAL NEEDED?NO PUBLIC HEALTH REFERRAL NEEDED?NO HAS THE PATIENT BEEN EDUCATED REGARDING HIS/HER PLAN OF CARE?YES HAS THE PATIENT BEEN EDUCATED REGARDING PAIN, THE RISK FOR PAIN, THE IMPORTANCE OF EFFECTIVE PAIN MANAGEMENT, AND THE PAIN ASSESSMENT PROCESS?YES PATIENT: ____. ADVANCE DIRECTIVES HEALTH CARE PROXY? NO, POWER OF [employer] EXCHANGE ARCHITECT? NO. HOSPITALIZATION/MAJOR DIAGNOSTIC PROCEDURE SURGERIES SOB, INCREASED BP AFTER PESTICIDE EXPOSURE 2013 REVIEW OF SYSTEMS REVIEWED BY: PROVIDER: FLAKITA MARROQUIN . CONSTITUTIONAL: ANY CHANGE IN YOUR MEDICAL CONDITION? NO . CHILLS NO . FEVER NO . INFECTION: DO YOU HAVE NEW INFECTIONS? NO . DO YOU HAVE HISTORY OF MRSA? NO . MUSCULOSKELETAL: ANY NEW PATTERNS OF PAIN OR NUMBNESS? NO . GASTROENTEROLOGY: ANY NEW CHANGE IN BOWEL CONTROL? NO . GENITOURINARY: ANY NEW CHANGE IN BLADDER CONTROL? NO . IS THERE A CHANCE YOU COULD BE ? NO . HEMATOLOGY/LYMPH: DO YOU TAKE ANY BLOOD THINNERS? (FOR EXAMPLE- COUMADIN, PLAVIX, AGGRENOX, PLATEL, PRADAXA, OR XARELTO) NO . WHEN WAS YOUR LAST DOSE? DATE: TIME: . NEUROLOGY: HAVE YOU FALLEN IN THE PAST 6 MONTHS? YES . ANY NEW EXTREMITY NUMBNESS OR WEAKNESS? NO . CARDIOLOGY: DO YOU HAVE A PACEMAKER OR DEFIBRILLATOR? NO . RESPIRATORY: HAVE YOU BEEN SICK IN THE PAST WEEK? NO . FEVER NO . FLU LIKE SYMPTOMS? NO . COUGH NO . INTEGUMENTARY: DO YOU HAVE ANY RASHES OR OPEN SORES? NO . ALLERGIC/IMMUNO: ARE YOU ALLERGIC TO SHELLFISH OR IV DYE? NO . ANY NEW ALLERGIES? NO . PSYCHIATRIC: DO YOU HAVE THOUGHTS OF HURTING YOURSELF OR SOMEONE ELSE? NO . ARE YOU ABUSED, NEGLECTED, OR IN AN UNSAFE ENVIRONMENT? NO . ENDOCRINOLOGY: ARE YOU DIABETIC? YES . OTHER: DO YOU NEED ANY PRESCRIPTIONS? NO . IF YES, PLEASE LIST: ____ . ANY NEW PROBLEMS WITH YOUR MEDICATIONS? NO . WHEN DID YOU LAST EAT? ____ . WHEN DID YOU LAST DRINK? ____ . WHAT DID YOU LAST DRINK? ____ . NAME OF PERSON DRIVING YOU HOME? ____ . DO YOU HAVE ANY OTHER QUESTIONS OR CONCERNS NO . VITAL SIGNS WT 265.6 LBS, HT 64.5", BMI 44.88 INDEX, BP 139/75 MM HG, HR 75 /MIN, RR 18 /MIN, TEMP 98.5 F, OXYGEN SAT % 96%, NA INITIALS SC 08:51. EXAMINATION GENERAL EXAMINATION: PSYCHALERT , ORIENTED X 3 , APPROPRIATE MOOD AND AFFECT . LUNGS:CLEAR TO AUSCULTATION BILATERALLY. HEART:HEART RATE REGULAR. MUSCULOSKELETAL:BILATERAL WEAKNESS IN QUADS AND WITH PLANTAR EXTENSION. SLOW TO RISE TO STANDING POSITION . TENDER WITH PALPATION OVER LEFT LUMBAR PARAVERTEBRAL MUSCLES. ASSESSMENTS LUMBAR DISC DISPLACEMENT WITHOUT MYELOPATHY - M51.26 (PRIMARY) LUMBAR FACET ARTHROPATHY - M12.88 SACROILIAC JOINT DISEASE - M53.3 TREATMENT LUMBAR DISC DISPLACEMENT WITHOUT MYELOPATHY NOTES: INTRALAMINAL LUMBAR EPIDURAL WALK TOLERATED. BE VERY CAUTIOUS WITH DRIVING. FOLLOW UP WITH NEUROLOGYHOLD DIABETES MED AM OF PROCEDURE. DO BLOOD SUGAR AM OF PROCEDURE AND BRING RESULTSBACK BRACE - WILL REQUEST. PROCEDURE CODES FA211 ESTABILISHED PATIENT [facility] CHARGE G8730 PAIN ASSESS POS TOOL F/U PLAN DOC G8427 DOC MEDS VERIFIED W/PT OR RE DISPOSITION & COMMUNICATION FOLLOW UP AFTER INJECTION (REASON: CHECK AUTH FOR INTRALAMINAL LESB) ELECTRONICALLY SIGNED BY [employer] ON 02/03/2017 AT 09:20 AM EST DISCLAIMER : THIS IS A VISIT SUMMARY EXTRACTED FROM THE [employer] CHART. IT IS NOT A COPY OF THE [employer] PROGRESS NOTE. ASHANTID
== END ==
LOC: M PAIN 08:30
PROVIDERS: ATTEND Nurse Practitioner Family
DX: M51.26 Other intervertebral disc displacement, lumbar region (principal); M12.88 Other specific arthropathies, not elsewhere classified, other specified site; M53.3 Sacrococcygeal disorders, not elsewhere classified; I10 Essential (primary) hypertension; E10.65 Type 1 diabetes mellitus with hyperglycemia; Z79.4 Long term (current) use of insulin; Z87.891 Personal history of nicotine dependence; Z79.899 Other long term (current) drug therapy; Z88.8 Allergy status to other drugs, medicaments and biological substances; Z88.0 Allergy status to penicillin; Z91.030 Bee allergy status

== ENCOUNTER → 2017-04-23 | Outpatient (REF) | payer MEDICARE, MEDICAID ==
[2017-04-23 19:31] LABS: ALBUMIN 4.4 GM/DL (3.2-5.2); ALBUMIN/GLOBULIN RATIO 1.38 (1.00-1.93); ALKALINE PHOSPHATASE 100 U/L (45-117); ALT/SGPT 31 U/L (12-78); ANION GAP 10 MEQ/L (8-16); AST/SGOT 16 U/L (7-37); BILIRUBIN,TOTAL 0.3 MG/DL (0.2-1.0); BLOOD UREA NITROGEN 26 MG/DL (7-18); CALCIUM LEVEL 9.5 MG/DL (8.5-10.1); CARBON DIOXIDE LEVEL 24 MEQ/L (21-32); CHLORIDE LEVEL 104 MEQ/L (98-107); CHOLESTEROL LEVEL 139 MG/DL (<200); CHOLESTEROL RISK RATIO 2.836 (<5); GLOMERULAR FILTRATION RATE 38.2 (>51); GLUCOSE, FASTING 321 MG/DL (70-100); HDL CHOLESTEROL 49 MG/DL (>40); LDL CHOLESTEROL 33.2 MG/DL (<100); NON-HDL-C 90 MG/DL; POTASSIUM SERUM 3.9 MEQ/L (3.5-5.1); SODIUM LEVEL 138 MEQ/L (136-145); TOTAL PROTEIN 7.6 GM/DL (6.4-8.2); TRIGLYCERIDES LEVEL 284 MG/DL (<150)
[2017-04-23 19:59] LABS: ESTIMATED AVERAGE GLUCOSE 263 MG/DL (60-110); HEMOGLOBIN A1c 10.8 %
== END ==
LOC: M SFHCADAM 12:21
DX: E11.22 Type 2 diabetes mellitus with diabetic chronic kidney disease (principal); N18.3 Chronic kidney disease, stage 3 (moderate); I12.9 Hypertensive chronic kidney disease with stage 1 through stage 4 chronic kidney disease, or unspecified chronic kidney disease
CPT/HCPCS: 80053

== ENCOUNTER 2018-03-02 16:30 | Emergency (ER) | payer MEDICARE, MEDICAID, OTHER ==
[2018-03-02 18:06] LABS: APPEARANCE, URINE CLEAR (CLEAR); BACTERIA, URINE AUTO 1+ (NEGATIVE); BILIRUBIN, URINE AUTO NEGATIVE (NEGATIVE); BLOOD, URINE BLOOD NEGATIVE (NEGATIVE); COLOR, URINE COLORLESS (YELLOW); GLUCOSE, URINE (UA) AUTO NEGATIVE (NEGATIVE); KETONE, URINE AUTO NEGATIVE (NEGATIVE); LEUKOCYTE ESTERASE, URINE AUTO NEGATIVE (NEGATIVE); NITRITE, URINE AUTO NEGATIVE (NEGATIVE); PROTEIN, URINE AUTO NEGATIVE (NEGATIVE); RBC, URINE AUTO 1 /HPF (0-3); SPECIFIC GRAVITY URINE AUTO 1.008 (1.002-1.035); SQUAMOUS EPITHELIAL CELL UR AU 0 /HPF (0-6); UROBILINOGEN, URINE AUTO 0.2 mg/dL (0.0-2.0); WBC, URINE AUTO 2 /HPF (0-3)
[2018-03-02 18:41] LABS: BASO # 0.1 10^3/uL (0.0-0.2); BASO % 0.8 % (0.0-1.0); EOS # 0.2 10^3/uL (0.0-0.50); EOS % 1.5 % (0.0-3.0); HEMATOCRIT 46.9 % (36.0-47.0); HEMOGLOBIN 15.7 g/dl (12.0-15.5); IMMATURE GRANULOCYTE % 0.8 % (0-3.0); LYMPH # 3.6 10^3/uL (1.5-4.5); LYMPH % 27.4 % (24.0-44.0); MEAN CORPUSCULAR HEMOGLOBIN 29.3 pg (27.0-33.0); MEAN CORPUSCULAR HGB CONC 33.5 g/dl (32.0-36.5); MEAN CORPUSCULAR VOLUME 87.7 fl (80.0-96.0); MONO # 0.9 10^3/uL (0.0-0.8); MONO % 6.5 % (0.0-5.0); NEUTROPHILS # 8.3 10^3/uL (1.8-7.7); PLATELET COUNT, AUTOMATED 428 10^3/uL (150-450); RED BLOOD COUNT 5.35 10^6/uL (4.00-5.40); RED CELL DISTRIBUTION WIDTH 12.9 % (11.5-14.5); WHITE BLOOD COUNT 13.2 10^3/uL (4.0-10.0)
[2018-03-02 18:52] LABS: ANION GAP 9 MEQ/L (8-16); BLOOD UREA NITROGEN 25 MG/DL (7-18); CALCIUM LEVEL 9.6 MG/DL (8.5-10.1); CARBON DIOXIDE LEVEL 25 MEQ/L (21-32); CHLORIDE LEVEL 104 MEQ/L (98-107); CREATININE FOR GFR 1.23 MG/DL (0.55-1.30); GLOMERULAR FILTRATION RATE 47.9 (>51); GLUCOSE, FASTING 208 MG/DL (70-100); SODIUM LEVEL 138 MEQ/L (136-145)
[2018-03-02] MEDS: METHOCARBAMOL 500 MG TAB PO (19:38)
== END 2018-03-02 19:18 | disposition home or self-care (01) ==
LOC: M ED 16:30
DX: S39.012A Strain of muscle, fascia and tendon of lower back, initial encounter (principal); X58.XXXA Exposure to other specified factors, initial encounter; Y92.89 Other specified places as the place of occurrence of the external cause; D17.71 Benign lipomatous neoplasm of kidney; Z79.899 Other long term (current) drug therapy; Z79.84 Long term (current) use of oral hypoglycemic drugs; Z88.0 Allergy status to penicillin; Z91.030 Bee allergy status
CPT/HCPCS: 76775

== ENCOUNTER → 2018-03-14 | Outpatient (REF) | payer MEDICARE, MEDICAID ==
[~2018-03-14] MED LIST changes: +AMIL5TAB4 PO; +AMLO5TAB6 PO; +FEBU40TA PO; +HUMA100I5 SQ; -ISOVUE-M 300 61% 15ML VIAL (Q9967) As Ordered ONE; -LIDOCAINE 1% SDV INJ 30 ML VIAL As Ordered ONE; +LOSA50TA88 PO; +ROBA500T PO; +ROSU20TA4 PO; +TOUJ1.2I SQ; -methylPREDNISolone SUSP 40 MG/ML (DEPO-medrol) VIAL (J1030) As Ordered ONE
[2018-03-14 19:35] LABS: CHOLESTEROL RISK RATIO 3.113 (<5); FREE T4 0.87 NG/DL (0.76-1.46); THYROID STIMULATING HORMONE 1.25 uIU/ML (0.358-3.740)
[2018-03-14 20:11] LABS: HEMOGLOBIN A1c 8.8 %
== END ==
LOC: M SFHCADAM 11:42
PROVIDERS: ATTEND Physician Assistant
DX: E10.65 Type 1 diabetes mellitus with hyperglycemia (principal)
CPT/HCPCS: 80061; 83036; 84439; 84443; 93005; G0463

== ENCOUNTER → 2018-07-21 | Outpatient (REF) | payer MEDICARE, MEDICAID | LOC: M LAB REF 13:27 | PROVIDERS: ATTEND Internal Medicine Nephrology | DX: N18.3 Chronic kidney disease, stage 3 (moderate) (principal); N39.0 Urinary tract infection, site not specified ==

== ENCOUNTER → 2018-08-26 | Outpatient (REF) | payer MEDICARE, MEDICAID | LOC: M SFHCADAM 09:25 | PROVIDERS: ATTEND Physician Assistant | DX: E11.22 Type 2 diabetes mellitus with diabetic chronic kidney disease (principal) | CPT/HCPCS: 83036; G0463 ==

== ENCOUNTER → 2018-10-15 | Outpatient (RCR) | payer MEDICARE, MEDICAID ==
[~2018-10-15] MED LIST changes: -ROSU20TA4 PO; +ROSU20TA5 PO
== END ==
LOC: M PT 10-09 08:13
PROVIDERS: ATTEND Family Medicine
DX: Z51.89 Encounter for other specified aftercare (principal); M48.061 Spinal stenosis, lumbar region without neurogenic claudication

== ENCOUNTER 2018-11-13 10:47 | Outpatient (RCR) | payer MEDICARE, MEDICAID ==
[~2018-11-13 10:47] MED LIST changes: -FEBU40TA PO; +FEBU40TA4 PO
== END 2018-11-15 ==
LOC: M PT 10:47
PROVIDERS: ATTEND Family Medicine
DX: Z51.89 Encounter for other specified aftercare (principal); M48.061 Spinal stenosis, lumbar region without neurogenic claudication

== ENCOUNTER → 2018-11-26 | Outpatient (REF) | payer MEDICARE, MEDICAID | LOC: M SFHCADAM 13:33 | PROVIDERS: ATTEND Physician Assistant | DX: E10.65 Type 1 diabetes mellitus with hyperglycemia (principal); I10 Essential (primary) hypertension; Z53.8 Procedure and treatment not carried out for other reasons ==

== ENCOUNTER 2018-12-11 10:38 | Outpatient (RCR) | payer MEDICARE, MEDICAID | END 2018-12-15 | LOC: M PT 10:38 | PROVIDERS: ATTEND Family Medicine | DX: Z51.89 Encounter for other specified aftercare (principal); M48.061 Spinal stenosis, lumbar region without neurogenic claudication ==

== ENCOUNTER → 2019-01-15 | Outpatient (RCR) | payer MEDICARE, MEDICAID | LOC: M PT 12-16 10:37 | PROVIDERS: ATTEND Family Medicine | DX: M48.061 Spinal stenosis, lumbar region without neurogenic claudication (principal) ==

== ENCOUNTER → 2019-02-09 | Outpatient (CLI) | payer MEDICARE, MEDICAID ==
[2019-02-09 10:54] LABS: CHOLESTEROL RISK RATIO 2.411 (<5); FREE T4 0.98 NG/DL (0.76-1.46); THYROID STIMULATING HORMONE 0.954 uIU/ML (0.358-3.740)
[2019-02-09 11:09] LABS: HEMOGLOBIN A1c 8.8 %
== END ==
LOC: M LAB 09:26
PROVIDERS: ATTEND Physician Assistant
DX: E10.65 Type 1 diabetes mellitus with hyperglycemia (principal); I10 Essential (primary) hypertension

== ENCOUNTER → 2019-02-17 | Outpatient (CLI) | payer MEDICARE, MEDICAID ==
--- NOTE | 2019-02-18 08:38 | REP ---
Clinical: Acute renal failure and right flank pain. Technique: Axial noncontrast images from the lung bases to the pubic symphysis with coronal and sagittal re-formations. Comparison: 11/21/2016. Findings: Lung bases are clear. Visualized heart and pericardium normal. Liver, spleen, pancreas, gallbladder, bilateral adrenal glands and kidneys are normal. Specifically, no hydroureteronephrosis, nephroureterolithiasis, or obvious renal abnormalities appreciated. Very minimal symmetric chronic perinephric stranding again noted. The bilateral ureters and collapsed bladder appear normal. The enteric system is without obstruction or acute inflammatory process. Few sigmoid diverticula noted without acute diverticulitis. Evaluation the pelvis demonstrates normal collapsed bladder and age-appropriate uterus/adnexa. 1 cm fat containing periumbilical hernia identified. No ascites. No free air. No adenopathy. Abdominal aorta without aneurysm. Musculoskeletal structures intact. Impression: 1. Normal appearance to the urinary tract system. 2. Few sigmoid diverticula without acute diverticulitis. 3. Incidental 1 cm fat containing periumbilical hernia. Electronically Signed by Samuel Toscano MD 02/18/2019 08:30 A
== END ==
LOC: M RAD 17:33
PROVIDERS: ATTEND Internal Medicine Nephrology
DX: K42.9 Umbilical hernia without obstruction or gangrene (principal); K57.30 Diverticulosis of large intestine without perforation or abscess without bleeding; N17.9 Acute kidney failure, unspecified; I12.9 Hypertensive chronic kidney disease with stage 1 through stage 4 chronic kidney disease, or unspecified chronic kidney disease; E11.22 Type 2 diabetes mellitus with diabetic chronic kidney disease

== ENCOUNTER → 2019-04-09 | Outpatient (REF) | payer MEDICARE | LOC: M SFHCADAM 15:51 | PROVIDERS: ATTEND Physician Assistant | DX: E10.65 Type 1 diabetes mellitus with hyperglycemia (principal); Z53.8 Procedure and treatment not carried out for other reasons ==

== ENCOUNTER → 2019-05-22 | Outpatient (CLI) | payer MEDICARE ==
[2019-05-22 10:10] LABS: HEMOGLOBIN A1c 8.8 %
== END ==
LOC: M LAB 08:14
PROVIDERS: ATTEND Physician Assistant
DX: E10.65 Type 1 diabetes mellitus with hyperglycemia (principal)

== ENCOUNTER → 2019-09-04 | Outpatient (REF) | payer MEDICARE ==
[2019-09-04 13:27] LABS: HEMOGLOBIN A1c 8.9 %
[2019-09-04 13:50] LABS: FREE T4 0.95 NG/DL (0.76-1.46); THYROID STIMULATING HORMONE 0.997 uIU/ML (0.358-3.740)
== END ==
LOC: M SFHCADAM 12:49
PROVIDERS: ATTEND Physician Assistant
DX: E10.65 Type 1 diabetes mellitus with hyperglycemia (principal); N18.3 Chronic kidney disease, stage 3 (moderate)

== ENCOUNTER → 2019-09-04 | Outpatient (REF) | payer MEDICARE | LOC: M SFHCADAM 13:06 | PROVIDERS: ATTEND Physician Assistant | DX: E10.65 Type 1 diabetes mellitus with hyperglycemia (principal); N18.3 Chronic kidney disease, stage 3 (moderate) ==

== ENCOUNTER → 2019-12-17 | Outpatient (REF) | payer MEDICARE ==
[~2019-12-17] MED LIST changes: +AMLO1TAB24 PO; -AMLO5TAB6 PO
[2019-12-17 16:45] LABS: HEMOGLOBIN A1c 8.9 %
[2019-12-17 16:47] LABS: BILIRUBIN,TOTAL 0.5 MG/DL (0.2-1.0); CALCIUM LEVEL 10.1 MG/DL (8.5-10.1); CREATININE FOR GFR 1.37 MG/DL (0.55-1.30); POTASSIUM SERUM 4.6 MEQ/L (3.5-5.1); TOTAL PROTEIN 7.4 GM/DL (6.4-8.2)
== END ==
LOC: M SFHCADAM 11:33
PROVIDERS: ATTEND Physician Assistant
DX: E11.22 Type 2 diabetes mellitus with diabetic chronic kidney disease (principal)
CPT/HCPCS: 80053; 83036; G0463

== ENCOUNTER → 2019-12-29 | Outpatient (REF) | payer MEDICARE | LOC: M LAB REF 17:16 | PROVIDERS: ATTEND Internal Medicine Nephrology | DX: D64.9 Anemia, unspecified (principal) ==

== ENCOUNTER → 2020-12-07 | Outpatient (REF) | payer MEDICARE, MEDICAID ==
[2020-12-07 17:27] LABS: HEMOGLOBIN A1c 8.7 %
== END ==
LOC: M SFHCADAM 16:58
PROVIDERS: ATTEND Physician Assistant
DX: E10.65 Type 1 diabetes mellitus with hyperglycemia (principal)

== ENCOUNTER → 2021-08-09 | Outpatient (REF) | payer MEDICARE, MEDICAID ==
[~2021-08-09] MED LIST changes: +LOSA50TA28 PO; -LOSA50TA88 PO
[2021-08-09 18:01] LABS: FREE T4 0.85 NG/DL (0.76-1.46); THYROID STIMULATING HORMONE 0.968 uIU/ML (0.358-3.740)
== END ==
LOC: M LAB REF 16:42
PROVIDERS: ATTEND Nurse Practitioner Family
DX: R53.83 Other fatigue (principal)

== ENCOUNTER → 2022-04-19 | Outpatient (REF) | payer MEDICARE, MEDICAID ==
[2022-04-19 16:58] LABS: CHOLESTEROL RISK RATIO 2.77 (<5); HDL CHOLESTEROL 46.9 MG/DL (>40); LDL CHOLESTEROL 46.1 MG/DL (<100)
[2022-04-19 21:34] LABS: HEMOGLOBIN A1c 9.1 % (4.0-6.0)
== END ==
LOC: M SFHCADAM 12:04
PROVIDERS: ATTEND Physician Assistant
DX: E11.22 Type 2 diabetes mellitus with diabetic chronic kidney disease (principal); E78.5 Hyperlipidemia, unspecified

== ENCOUNTER → 2022-05-25 | Outpatient (CLI) | payer MEDICARE, MEDICAID | LOC: M WHC 10:26 | PROVIDERS: ATTEND Nurse Practitioner Family | DX: N18.31 Chronic kidney disease, stage 3a (principal) ==

== ENCOUNTER → 2022-08-15 | Outpatient (CLI) | payer MEDICARE, MEDICAID | LOC: M RAD 14:05 | PROVIDERS: ATTEND Podiatrist Foot & Ankle Surgery | DX: I73.89 Other specified peripheral vascular diseases (principal) ==

== ENCOUNTER → 2022-09-25 | Outpatient (CLI) | payer MEDICARE, MEDICAID ==
[~2022-09-25] MED LIST changes: -ROSU20TA5 PO; +ROSU20TA61 PO
[2022-09-25 07:57] LABS: CALCIUM LEVEL 10.9 MG/DL (8.3-10.6); CREATININE FOR GFR 1.25 MG/DL (0.55-1.30); GLOMERULAR FILTRATION RATE 46.4 (>45)
== END ==
LOC: M LAB 07:07
PROVIDERS: ATTEND Physician Assistant
DX: E11.22 Type 2 diabetes mellitus with diabetic chronic kidney disease (principal)

== ENCOUNTER → 2022-10-16 | Outpatient (CLI) | payer MEDICARE, MEDICAID ==
[2022-10-16 08:29] LABS: ALBUMIN 3.9 G/DL (3.2-5.2); CALCIUM LEVEL 9.7 MG/DL (8.3-10.6); CREATININE FOR GFR 1.28 MG/DL (0.55-1.30); GLOMERULAR FILTRATION RATE 45.1 (>45); PHOSPHORUS LEVEL 4.5 MG/DL (2.4-5.1); POTASSIUM SERUM 4.7 MMOL/L (3.5-5.1)
[2022-10-16 15:42] LABS: BILIRUBIN,DIRECT 0.2 MG/DL (<0.4); BILIRUBIN,TOTAL 0.6 MG/DL (0.3-1.2); CHOLESTEROL RISK RATIO 2.93 (<5); HDL CHOLESTEROL 43.9 MG/DL (>40); LDL CHOLESTEROL 38.7 MG/DL (<100); NON-HDL-C 85.1 MG/DL; TOTAL PROTEIN 6.8 G/DL (5.7-8.2)
== END ==
LOC: M LAB 07:18
PROVIDERS: ATTEND Nurse Practitioner Family
DX: N18.31 Chronic kidney disease, stage 3a (principal); E78.2 Mixed hyperlipidemia

== ENCOUNTER → 2022-12-05 | Outpatient (CLI) | payer MEDICARE, MEDICAID ==
[2022-12-05 08:27] LABS: HEMOGLOBIN A1c 7.7 % (4.0-6.0)
== END ==
LOC: M LAB 07:31
PROVIDERS: ATTEND Physician Assistant
DX: E11.22 Type 2 diabetes mellitus with diabetic chronic kidney disease (principal)

== ENCOUNTER → 2023-05-01 | Outpatient (CLI) | payer MEDICARE, MEDICAID ==
[~2023-05-01] MED LIST changes: +ASPI81CH33 PO; +JARD1TAB; +METO1TAB7
== END ==
LOC: M SLEEP HO 11:05
PROVIDERS: ATTEND Family Medicine
DX: G47.30 Sleep apnea, unspecified (principal)

== ENCOUNTER → 2023-05-13 | Outpatient (CLI) | payer MEDICARE, MEDICAID | LOC: M RAD 12:59 | PROVIDERS: ATTEND Specialist | DX: D45 Polycythemia vera (principal) ==

== ENCOUNTER → 2023-05-20 | Outpatient (CLI) | payer MEDICARE, MEDICAID | LOC: M RAD 08:19 | PROVIDERS: ATTEND Internal Medicine Hematology & Oncology | DX: D45 Polycythemia vera (principal); K76.0 Fatty (change of) liver, not elsewhere classified ==

== ENCOUNTER → 2023-06-06 | Outpatient (CLI) | payer MEDICARE, MEDICAID ==
[~2023-06-06] MED LIST changes: +BLOO-217
[2023-06-06 13:43] LABS: BASO # 0.1 10^3/uL (0.0-0.2); BASO % 1.1 % (0.0-1.0); EOS # 0.3 10^3/uL (0.0-0.5); HEMATOCRIT 49.5 % (36.0-47.0); HEMOGLOBIN 16.3 g/dl (12.0-15.5); LYMPH # 3.2 10^3/uL (1.5-5.0); LYMPH % 25.4 % (24.0-44.0); MEAN CORPUSCULAR HEMOGLOBIN 30.5 pg (27.0-33.0); MEAN CORPUSCULAR HGB CONC 32.9 g/dl (32.0-36.5); MEAN CORPUSCULAR VOLUME 92.5 fl (80.0-96.0); MONO # 0.9 10^3/uL (0.0-0.8); MONO % 7.3 % (2.0-8.0); NEUTROPHILS % 63.3 % (36.0-66.0); PLATELET COUNT, AUTOMATED 371 10^3/uL (150-450); RED BLOOD COUNT 5.35 10^6/uL (4.00-5.40); WHITE BLOOD COUNT 12.7 10^3/uL (4.0-10.0)
== END ==
LOC: M LAB 13:03
PROVIDERS: ATTEND Specialist
DX: D45 Polycythemia vera (principal)

== ENCOUNTER → 2023-07-23 | Outpatient (CLI) | payer MEDICARE, MEDICAID | LOC: M PLAIMG 12:45 | PROVIDERS: ATTEND Family Medicine | DX: M25.512 Pain in left shoulder (principal) ==

== ENCOUNTER → 2023-08-27 | Outpatient (REF) | payer MEDICARE, MEDICAID | LOC: M SFHCPLAZ 15:31 | PROVIDERS: ATTEND Family Medicine | DX: E11.22 Type 2 diabetes mellitus with diabetic chronic kidney disease (principal); I12.9 Hypertensive chronic kidney disease with stage 1 through stage 4 chronic kidney disease, or unspecified chronic kidney disease ==

== ENCOUNTER → 2023-08-31 | Outpatient (CLI) | payer MEDICARE, MEDICAID | LOC: M SLEEP 20:00 | PROVIDERS: ATTEND Physician Assistant | DX: G47.33 Obstructive sleep apnea (adult) (pediatric) (principal) ==

== ENCOUNTER → 2023-11-21 | Outpatient (CLI) | payer MEDICARE, MEDICAID ==
[2023-11-21 08:26] LABS: CHOLESTEROL RISK RATIO 2.77 (<5); HDL CHOLESTEROL 44.3 MG/DL (>40); LDL CHOLESTEROL 46.5 MG/DL (<100); NON-HDL-C 78.7 MG/DL
[2023-11-21 08:38] LABS: HEMOGLOBIN A1c 7.9 % (4.0-6.0)
== END ==
LOC: M LAB 07:28
PROVIDERS: ATTEND Family Medicine
DX: E11.22 Type 2 diabetes mellitus with diabetic chronic kidney disease (principal); I12.9 Hypertensive chronic kidney disease with stage 1 through stage 4 chronic kidney disease, or unspecified chronic kidney disease

== ENCOUNTER → 2023-12-09 | Outpatient (CLI) | payer MEDICARE, MEDICAID ==
[2023-12-09 15:00] LABS: BASO # 0.1 10^3/uL (0.0-0.2); BASO % 1.1 % (0.0-1.0); EOS # 0.2 10^3/uL (0.0-0.5); EOS % 1.5 % (0.0-3.0); HEMATOCRIT 52.1 % (36.0-47.0); HEMOGLOBIN 17.4 g/dl (12.0-15.5); LYMPH # 3.4 10^3/uL (1.5-5.0); LYMPH % 25.2 % (24.0-44.0); MEAN CORPUSCULAR HEMOGLOBIN 29.1 pg (27.0-33.0); MEAN CORPUSCULAR HGB CONC 33.4 g/dl (32.0-36.5); MEAN CORPUSCULAR VOLUME 87.1 fl (80.0-96.0); MONO # 1.3 10^3/uL (0.0-0.8); MONO % 9.6 % (2.0-8.0); NEUTROPHILS # 8.2 10^3/uL (1.5-8.5); NEUTROPHILS % 61.6 % (36.0-66.0); PLATELET COUNT, AUTOMATED 404 10^3/uL (150-450); RED BLOOD COUNT 5.98 10^6/uL (4.00-5.40); WHITE BLOOD COUNT 13.3 10^3/uL (4.0-10.0)
[2023-12-09 15:22] LABS: ALBUMIN 3.8 G/DL (3.2-5.2); BILIRUBIN,TOTAL 0.4 MG/DL (0.3-1.2); CALCIUM LEVEL 9.7 MG/DL (8.3-10.6); CREATININE FOR GFR 1.12 MG/DL (0.55-1.30); GLOMERULAR FILTRATION RATE 52.3 (>45); POTASSIUM SERUM 4.8 MMOL/L (3.5-5.1)
== END ==
LOC: M LAB 13:49
PROVIDERS: ATTEND Internal Medicine Hematology & Oncology
DX: D75.1 Secondary polycythemia (principal)

== ENCOUNTER → 2023-12-21 | Outpatient (CLI) | payer MEDICARE, MEDICAID ==
[~2023-12-21] MED LIST changes: +ERGO500029; +NOXI1TAB PO; -ROSU20TA61 PO; +ROSU20TA86 PO; +SEMA0.257
== END ==
LOC: M SLEEP 20:00
PROVIDERS: ATTEND Physician Assistant
DX: G47.33 Obstructive sleep apnea (adult) (pediatric) (principal)

== ENCOUNTER → 2024-04-10 | Outpatient (CLI) | payer MEDICARE, MEDICAID ==
[2024-04-10 11:53] LABS: HEMATOCRIT 53.8 % (36.0-47.0); HEMOGLOBIN 17.4 g/dl (12.0-15.5); MEAN CORPUSCULAR HEMOGLOBIN 27.4 pg (27.0-33.0); MEAN CORPUSCULAR HGB CONC 32.3 g/dl (32.0-36.5); MEAN CORPUSCULAR VOLUME 84.9 fl (80.0-96.0); PLATELET COUNT, AUTOMATED 380 10^3/uL (150-450); RED BLOOD COUNT 6.34 10^6/uL (4.00-5.40); WHITE BLOOD COUNT 12.1 10^3/uL (4.0-10.0)
[2024-04-10 13:52] LABS: ALBUMIN 3.9 G/DL (3.2-5.2); BILIRUBIN,TOTAL 0.6 MG/DL (0.3-1.2); CREATININE FOR GFR 1.22 MG/DL (0.55-1.30); GLOMERULAR FILTRATION RATE 47.4 (>45); POTASSIUM SERUM 4.6 MMOL/L (3.5-5.1); TOTAL PROTEIN 7.6 G/DL (5.7-8.2)
== END ==
LOC: M LAB 10:56
PROVIDERS: ATTEND Specialist
DX: D45 Polycythemia vera (principal)

== ENCOUNTER → 2024-06-06 | Outpatient (CLI) | payer MEDICARE, MEDICAID ==
[~2024-06-06] MED LIST changes: +FAMO1TAB11
[2024-06-06 11:13] LABS: BASO # 0.1 10^3/uL (0.0-0.2); BASO % 1.2 % (0.0-1.0); EOS # 0.3 10^3/uL (0.0-0.5); EOS % 2.2 % (0.0-3.0); HEMATOCRIT 48.8 % (36.0-47.0); LYMPH # 3.4 10^3/uL (1.5-5.0); MEAN CORPUSCULAR HEMOGLOBIN 27.7 pg (27.0-33.0); MEAN CORPUSCULAR HGB CONC 32.8 g/dl (32.0-36.5); MEAN CORPUSCULAR VOLUME 84.6 fl (80.0-96.0); MONO # 0.9 10^3/uL (0.0-0.8); MONO % 7.7 % (2.0-8.0); NEUTROPHILS # 7.2 10^3/uL (1.5-8.5); PLATELET COUNT, AUTOMATED 424 10^3/uL (150-450); RED BLOOD COUNT 5.77 10^6/uL (4.00-5.40)
== END ==
LOC: M LAB 09:52
PROVIDERS: ATTEND Specialist
DX: D75.1 Secondary polycythemia (principal)

== ENCOUNTER → 2024-07-09 | Outpatient (CLI) | payer MEDICARE, MEDICAID ==
[~2024-07-09] MED LIST changes: +JARD1TAB3
[2024-07-09 08:03] LABS: ALBUMIN 3.6 G/DL (3.2-5.2); BILIRUBIN,TOTAL 0.4 MG/DL (0.3-1.2); CALCIUM LEVEL 9.6 MG/DL (8.3-10.6); CREATININE FOR GFR 1.16 MG/DL (0.55-1.30); POTASSIUM SERUM 4.4 MMOL/L (3.5-5.1); TOTAL PROTEIN 6.7 G/DL (5.7-8.2)
== END ==
LOC: M LAB 06:56
PROVIDERS: ATTEND Family Medicine
DX: E11.22 Type 2 diabetes mellitus with diabetic chronic kidney disease (principal)

== ENCOUNTER → 2024-11-05 | Outpatient (CLI) | payer MEDICARE, MEDICAID ==
[~2024-11-05] MED LIST changes: +TOUJ1.2I
[2024-11-05 07:55] LABS: BASO # 0.1 10^3/uL (0.0-0.2); BASO % 1.1 % (0.0-1.0); EOS # 0.4 10^3/uL (0.0-0.5); EOS % 2.7 % (0.0-3.0); LYMPH # 4.0 10^3/uL (1.5-5.0); LYMPH % 30.1 % (24.0-44.0); MONO # 1.1 10^3/uL (0.0-0.8); MONO % 8.5 % (2.0-8.0); NEUTROPHILS # 7.5 10^3/uL (1.5-8.5); NEUTROPHILS % 56.8 % (36.0-66.0); PLATELET COUNT, AUTOMATED 394 10^3/uL (150-450)
[2024-11-05 08:45] LABS: ALT/SGPT 32.0 U/L (7.0-40); AST/SGOT 28.0 U/L (<34); CALCIUM LEVEL 9.6 MG/DL (8.3-10.6); CARBON DIOXIDE LEVEL 24.0 MMOL/L (20-31); CHLORIDE LEVEL 105.0 MMOL/L (98-107); CREATININE FOR GFR 1.14 MG/DL (0.55-1.30); GLOMERULAR FILTRATION RATE 54.1 (>45); IRON (FE) 41.0 UG/DL (50-170); PERCENT SATURATION 10.7 % (13.2-45.0); POTASSIUM SERUM 4.7 MMOL/L (3.5-5.1); SODIUM LEVEL 140.0 MMOL/L (136-145)
== END ==
LOC: M LAB 07:28
PROVIDERS: ATTEND Specialist
DX: D75.1 Secondary polycythemia (principal); Z79.899 Other long term (current) drug therapy; R71.8 Other abnormality of red blood cells

== ENCOUNTER → 2025-01-25 | Outpatient (CLI) | payer MEDICARE, MEDICAID ==
[2025-01-25 13:14] LABS: ESTIMATED AVERAGE GLUCOSE 206.0 MG/DL (60-110)
[2025-01-25 13:28] LABS: ALT/SGPT 21.0 U/L (7.0-40); AST/SGOT 16.0 U/L (<34); CALCIUM LEVEL 9.5 MG/DL (8.3-10.6); CARBON DIOXIDE LEVEL 23.0 MMOL/L (20-31); CHLORIDE LEVEL 106.0 MMOL/L (98-107); CREATININE FOR GFR 1.34 MG/DL (0.55-1.30); GLOMERULAR FILTRATION RATE 44.3 (>45); POTASSIUM SERUM 4.8 MMOL/L (3.5-5.1); SODIUM LEVEL 139.0 MMOL/L (136-145)
== END ==
LOC: M LAB 11:46
PROVIDERS: ATTEND Family Medicine
DX: E11.22 Type 2 diabetes mellitus with diabetic chronic kidney disease (principal); N18.32 Chronic kidney disease, stage 3b

== ENCOUNTER → 2025-02-15 | Outpatient (CLI) | payer MEDICARE, MEDICAID ==
[~2025-02-15] MED LIST changes: +TIRZ2.5P
[2025-02-15 11:27] LABS: BASO # 0.1 10^3/uL (0.0-0.2); BASO % 1.0 % (0.0-1.0); EOS # 0.2 10^3/uL (0.0-0.5); EOS % 2.0 % (0.0-3.0); LYMPH # 3.1 10^3/uL (1.5-5.0); LYMPH % 27.1 % (24.0-44.0); MONO # 0.9 10^3/uL (0.0-0.8); MONO % 7.5 % (2.0-8.0); NEUTROPHILS # 7.0 10^3/uL (1.5-8.5); NEUTROPHILS % 61.4 % (36.0-66.0)
[2025-02-15 11:49] LABS: ALT/SGPT 23.0 U/L (7.0-40); AST/SGOT 22.0 U/L (<34); CALCIUM LEVEL 9.6 MG/DL (8.3-10.6); CARBON DIOXIDE LEVEL 24.0 MMOL/L (20-31); CHLORIDE LEVEL 106.0 MMOL/L (98-107); CREATININE FOR GFR 1.25 MG/DL (0.55-1.30); GLOMERULAR FILTRATION RATE 48.1 (>45); IRON (FE) 24.0 UG/DL (50-170); PERCENT SATURATION 6.5 % (13.2-45.0); POTASSIUM SERUM 4.6 MMOL/L (3.5-5.1); SODIUM LEVEL 141.0 MMOL/L (136-145)
== END ==
LOC: M LAB 10:59
PROVIDERS: ATTEND Specialist
DX: D75.1 Secondary polycythemia (principal)